=== PATIENT | male | born 1935 | race Asian ===

== ENCOUNTER 2016-10-09 12:39 | Inpatient (IN) | payer OTHER ==
--- NOTE | 2016-10-09 13:28 | PDOC ---
History of Present Illness - General History Source: Patient Exam Limitations: No Limitations <Cherry Arzola - Last Filed: 10/09/16 16:29> - History of Present Illness Initial Comments: 10/09/16 13:37 - General History Source: Patient Exam Limitations: No Limitations - History of Present Illness Initial Comments: 10/09/16 13:29 The patient is an 81-year-old man, accompanied by spouse, with a significant past medical history of anemia, liver transplant status post liver Ca (2005; on Cyclosporine) hypertension, insulin dependent diabetes mellitus, dementia who presents to the emergency department status post fall 2 days ago. History was provided by patient;s and old records, secondary to patient's clinical history of dementia. As per patient's , at approximately 12:00 AM, 2 days ago, the patient got up to use the commode. While getting up from the commode, the patient fell onto his right side. No head injury/loss of consciousness. Patients was unable to lift the patient up by herself, therefore he stayed on the floor until the next day, when home care came over. EMS was activated. Patient currently complaints of right hip and leg pain, as per . also states that the patient has been running low grade subjective fevers at home, TMAX 99.7. Allergies: No Known Drug Allergies Past Surgical History: Liver transplant. Left hip surgery. Social History: No tobacco, ETOH and recreational drug use. Primary Care Physician: Dr. Sandra Ramirez Review of systems unobtainable, due to history of dementia. <Cherry Arzola - Last Filed: 10/09/16 13:33> <Madison Viera - Last Filed: 10/10/16 22:28> - General Chief Complaint: Injury Stated Complaint: FALL Time Seen by Provider: 10/09/16 13:06 Past History <Cherry Arzola - Last Filed: 10/09/16 16:29> - Past Medical History Anemia: Yes Cancer: Yes (liver) Dementia: Yes Diabetes: Yes (IDDM) GI Disorders: Yes (GASTROESOPHAGEAL REFLUX) HTN: Yes - Surgical History Abdominal Surgery: Yes (LIVER TRANSPLANT: 1995) Orthopedic Surgery: Yes (LT HIP SURGERY) - Psycho/Social/Smoking Cessation Hx Anxiety: No Suicidal Ideation: No Smoking History: Never smoked Have you smoked in the past 12 months: No Hx Alcohol Use: No Drug/Substance Use Hx: No Substance Use Type: None Hx Substance Use Treatment: No <Madison Viera - Last Filed: 10/10/16 22:28> - Past Medical History Allergies/Adverse Reactions: Allergies Allergy/AdvReac Type Severity Reaction Status Date / Time No Known Allergies Allergy Verified 10/09/16 12:50 Home Medications: Ambulatory Orders Alendronate Na [Fosamax] 70 mg PO Q7D 10/09/16 Amlodipine Besylate [Norvasc -] 5 mg PO DAILY 10/09/16 Cyclosporine 25 mg PO DAILY 10/09/16 Dexlansoprazole [Dexilant] 60 mg PO DAILY 10/09/16 Fluticasone Prop 0.05% Nasal [Flonase -] 1 spray NS DAILY 10/09/16 Lamivudine 300 mg PO DAILY 10/09/16 Lipase/Protease/Amylase [Creon Dr 36,000 Units Capsule] 1 each PO DAILY Olopatadine HCl [Pataday] 2.5 ml OP DAILY 10/09/16 [place]-3/Dha/Epa/Fish Oil [[place] 3 500 Softgel] 1 each PO DAILY 10/09/16 Rivastigmine [Exelon] 1 each TD DAILY PRN 10/09/16 Ursodiol [Actigall] 300 mg PO DAILY 10/09/16 Carbidopa/Levodopa *Cr* 25/100 [Sinemet *Cr* 25/100 -] 1 combo PO TID 10/10/16 Review of Systems - Review of Systems Able to Perform ROS?: No Comments:: 10/09/16 13:33 Review of systems unobtainable, due to history of dementia. <Cherry Arzola - Last Filed: 10/09/16 16:29> *Physical Exam - Vital Signs Last Vital Signs Temp Pulse Resp BP Pulse Ox 98 F 65 18 120/74 96 10/09/16 12:41 10/09/16 12:41 10/09/16 12:41 10/09/16 12:41 10/09/16 12:41 <Cherry Arzola - Last Filed: 10/09/16 16:29> - Vital Signs Last Vital Signs Temp Pulse Resp BP Pulse Ox 98 F 65 18 120/74 96 10/09/16 12:41 10/09/16 12:41 10/09/16 12:41 10/09/16 12:41 10/09/16 12:41 - Physical Exam Comments: 10/09/16 13:37 Physical exam Last Vital Signs Temp Pulse Resp BP Pulse Ox 98 F 65 18 120/74 96 10/09/16 12:41 10/09/16 12:41 10/09/16 12:41 10/09/16 12:41 10/09/16 12:41 GENERAL: The patient is awake, alert, and answers Y or N occ. to simple questions HEAD: Normal with no signs of trauma. EYES: sclera anicteric, conjunctiva are normal. ENT: Moist mucous membranes. NECK: Normal range of motion, supple No C-spine tenderness LUNGS: Breath sounds equal, clear to auscultation bilaterally. No wheezes, and no crackles. HEART: Regular rate and rhythm, normal S1 and S2 without murmur, rub or gallop. ABDOMEN: Soft, nontender, normoactive bowel sounds. No guarding, no rebound. No masses appreciated. EXTREMITIES: There is some tenderness on the right pelvis There is tenderness on the right hip and upper femur There is full range of motion of the left hip There is full range of motion of the shoulders and elbows bilaterally The dorsalis pedis pulse is palpable in the right lower extremity NEUROLOGICAL: Patient is demented, occasionally answers yes or no to simple questions Moves extremities appears grossly nonfocal, does not move right lower extremity secondary to pain SKIN: Warm, Dry, <Madison Viera - Last Filed: 10/10/16 22:28> ED Treatment Course - LABORATORY CBC & Chemistry Diagram: 10/09/16 14:09 10/09/16 14:09 - RADIOLOGY Radiograph Interpretation: 10/09/16 15:22 EXAM: CT/CERVICAL SPINE CT W/O CONTR IMPRESSION: There is no CT evidence of intracranial injury or calvarial fracture. No discrete infarct is identified within the limitations of CT. Mild to moderate periventricular microvascular ischemic gliosis is noted. There is no extra-axial fluid collection. No obvious mass lesion is seen. Involutional changes are seen with corresponding mild ventricular dilatation. A small to moderate amount nonspecific fluid is noted within the right mastoid air cells. No gross temporal bone fracture is identified on this study. IMPRESSION: No CT evidence of acute intracranial pathology. A small to moderate amount of fluid is seen within the right mastoid air cells. EXAM: CT/HEAD CT WITHOUT CONTRAST IMPRESSION: Cervical spine CT without contrast Clinical information: status post fall, injury No fracture or dislocation is seen. Moderate degenerative disc and facet joint changes are noted. A small left paramedian C4-C5 disc herniation is seen. The perivertebral soft tissues demonstrate no discrete abnormality <Cherry Arzola - Last Filed: 10/09/16 16:29> - LABORATORY CBC & Chemistry Diagram: 10/10/16 06:15 10/10/16 06:15 - RADIOLOGY Radiology Studies Ordered: Category Date Time Status CERVICAL SPINE CT W/O CONTR [CT] Stat CT Scan 10/09/16 13:[address] WITHOUT CONTRAST [CT] Stat CT Scan 10/09/16 13:25 Ordered CHEST - PA [RAD] Stat Radiology 10/09/16 13:26 Ordered FEMUR-RIGHT [RAD] Stat Radiology 10/09/16 13:26 Ordered HIP & PELVIS-RIGHT [RAD] Stat Radiology 10/09/16 13:26 Ordered <Madison Viera - Last Filed: 10/10/16 22:28> Medical Decision Making - Medical Decision Making 10/09/16 16:14 MicroBlogged Hospitalist. 10/09/16 16:30 Paged Orthopedics car sales consultant- MYESHA Barbosa. <Cherry Arzola - Last Filed: 10/09/16 16:29> - Medical Decision Making 10/09/16 13:41 EKG Normal sinus rhythm 63, left axis deviation -21 Normal AV conduction time Right bundle branch block QTC [address]-T waves When compared to the EKG of 05/20/16 Today's EKG is unchanged from the prior EKG 10/09/16 15:09 Laboratory Results - last 24 hr 10/09/16 10/09/16 10/09/16 14:09 14:09 14:09 WBC 8.4 D RBC 3.35 L Hgb 11.4 L Hct 33.1 L MCV 98.8 H MCHC 34.3 RDW 13.1 D Plt Count 148 D MPV 7.6 Sodium 137 Potassium 4.4 Chloride 101 Carbon Dioxide 27 Anion Gap 9 BUN 20 H Creatinine 1.2 D Creat Clearance w eGFR 58.26 Random Glucose 111 H Calcium 8.5 Magnesium 2.1 Total Bilirubin 1.1 H AST 24 ALT 18 D Alkaline Phosphatase 289 H Creatine Kinase 82 Troponin I < 0.02 B-Natriuretic Peptide 577.44 H Total Protein 7.1 Albumin 2.6 L Urine Color Yellow Urine Appearance Clear Urine pH 7.0 D Ur Specific [place] 1.013 Urine Protein Negative Urine Glucose (UA) Negative Urine Ketones Negative Urine Blood Negative Urine Nitrite Negative Urine Bilirubin Negative Urine Urobilinogen 2.0 e.u/dl Ur Leukocyte Esterase Negative 10/09/16 15:43 CT scan of the head without NAD CT scan of the C-spine No fracture is identified 10/09/16 16:45 Hip and pelvis as read by me Intertrochanteric fracture of the right hip Chest x-ray as read by me Poor inspiration, increased markings, no definite infiltrate Awaiting radiology reading Case discussed with hospitalist, and case discussed with MYESHA Barbosa from orthopedics Will admit, nothing by mouth after midnight <Madison Viera - Last Filed: 10/10/16 22:28> *DC/Admit/Observation/Transfer - Attestations Scribe Attestion: 10/09/16 13:30 Documentation prepared by Cherry Arzola, acting as medical planner for Madison Viera MD. <Cherry Arzola - Last Filed: 10/09/16 16:29> - Discharge Dispostion Admit: Yes <Madison Viera - Last Filed: 10/10/16 22:28> Diagnosis at time of Disposition: Hip fracture, Fall with injury - Referrals
[2016-10-09] MEDS: SODIUM CHLORIDE 1,000 ML IV SCH (14:08)
[2016-10-09 14:13] LABS: MCH 33.9 pg (25.7-33.7); MCHC 34.3 g/dl (32.0-35.9); MEAN CELL VOLUME 98.8 fl (80-96); MEAN PLT VOLUME 7.6 fl (7.5-11.1); PLATELET COUNT 148 K/MM3 (134-434); RDW 13.1 % (11.9-15.9); WHITE BLOOD COUNT 8.4 K/mm3 (4.0-10.0)
[2016-10-09 14:19] LABS: URINE APPEARANCE CLEAR; URINE BILIRUBIN NEGATIVE (NEGATIVE); URINE BLOOD NEGATIVE (NEGATIVE); URINE COLOR YELLOW; URINE GLUCOSE (UA) NEGATIVE (NEGATIVE); URINE KETONE NEGATIVE (NEGATIVE); URINE LEUK ESTERASE NEGATIVE (NEGATIVE); URINE NITRITE NEGATIVE (NEGATIVE); URINE PROTEIN NEGATIVE (NEGATIVE); URINE UROBILINOGEN 2.0 E.U/dl E.U./dl (0.2-1.0)
[2016-10-09 14:36] LABS: ALBUMIN 2.6 g/dl (3.4-5.0); ANION GAP 9 (8-16); BILIRUBIN,TOTAL 1.1 mg/dL (0.2-1.0); CALCIUM 8.5 mg/dL (8.5-10.1); CO2 27 mmol/L (21-32); COCKROFT - GAULT 53.54; CREATININE 1.2 mg/dL (0.7-1.3); GLUCOSE,RANDOM 111 mg/dL (74-106); MAGNESIUM 2.1 mg/dL (1.8-2.4); SGOT/AST 24 U/L (15-37); SGPT/ALT 18 U/L (12-78); TOT PROT 7.1 g/dl (6.4-8.2)
[2016-10-09 14:39] LABS: ALK PHOS 289 U/L (45-117); TROPONIN I < 0.02 ng/ml (0.00-0.05)
--- NOTE | 2016-10-09 20:09 | HP ---
CHIEF COMPLAINT: R- Hip Pain PCP: Dr. Ashley Garcias HISTORY OF PRESENT ILLNESS: This is a 81 y/o male with significant past medical history of Hypertension, IDDM, Liver Transplant s/p Liver Ca (on Cyclosporine), Anemia, Dementia. Who presents to the emergency department from home s/p fall x2 days, with right hip pain, non-ambulatory. Patient has Dementia, unable to obtain HPI. Per ED records: As per patient's , at approximately 12:00 AM, 2 days ago, the patient got up to use the commode. While getting up from the commode, the patient fell onto his left side. No head injury/loss of consciousness. Patients was unable to lift the patient up by herself, therefore he stayed on the floor until the next day, when home care came over. EMS was activated. Patient currently complaints of right hip and leg pain, as per . also states that the patient has been running low grade subjective fevers at home, TMAX 99.7 ER course was notable for: (1) Xray Right Hip- Intertrochanteric fx (2) CT Head- no intracranial injury or calvorial fx (3) Ct Spine- No fx, no dislocation. Moderate degenerative disc/facet joint C4- C5 disc herniation Recent Travel: None PAST MEDICAL HISTORY: Hypertension IDDM Liver Ca Anemia Dementia PAST SURGICAL HISTORY: Liver Transplant 2005 Social History: Smoking: Never Alcohol: None Drugs: None Family History: Non-contributory Allergies No Known Allergies Allergy (Verified 10/09/16 12:50) HOME MEDICATIONS: Home Medications Medication Instructions Recorded Alendronate Na [Fosamax] 70 mg PO Q7D 10/09/16 Amlodipine Besylate [Norvasc -] 5 mg PO DAILY 10/09/16 Cyclosporine 25 mg PO DAILY 10/09/16 Dexlansoprazole [Dexilant] 60 mg PO DAILY 10/09/16 Fluticasone Prop 0.05% Nasal 1 spray NS DAILY 10/09/16 [Flonase -] Lamivudine 300 mg PO DAILY 10/09/16 Lipase/Protease/Amylase [[place]anna[place] Dr 1 each PO DAILY 10/09/16 36,000 Units Capsule] Olopatadine HCl [Pataday] 2.5 ml OP DAILY 10/09/16 [place]-3/Dha/Epa/Fish Oil [[place] 3 1 each PO DAILY 04/30/17 500 Softgel] Rivastigmine [Exelon] 1 each TD DAILY PRN 10/09/16 Ursodiol [Actigall] 300 mg PO DAILY 10/09/16 REVIEW OF SYSTEMS Unable to obtain secondary to Dementia CONSTITUTIONAL: Absent: fever, chills, diaphoresis, generalized weakness, malaise, loss of appetite, weight change HEENT: Absent: rhinorrhea, nasal congestion, throat pain, throat swelling, difficulty swallowing, mouth swelling, ear pain, eye pain, visual changes CARDIOVASCULAR: Absent: chest pain, syncope, palpitations, irregular heart rate, lightheadedness , peripheral edema RESPIRATORY: Absent: cough, shortness of breath, dyspnea with exertion, orthopnea, wheezing, stridor, hemoptysis GASTROINTESTINAL: Absent: abdominal pain, abdominal distension, nausea, vomiting, diarrhea, constipation, melena, hematochezia GENITOURINARY: Absent: dysuria, frequency, urgency, hesitancy, hematuria, flank pain, genital pain MUSCULOSKELETAL: Absent: myalgia, arthralgia, joint swelling, back pain, neck pain SKIN: Absent: rash, itching, pallor HEMATOLOGIC/IMMUNOLOGIC: Absent: easy bleeding, easy bruising, lymphadenopathy, frequent infections ENDOCRINE: Absent: unexplained weight gain, unexplained weight loss, heat intolerance, cold intolerance NEUROLOGIC: Absent: headache, focal weakness or paresthesias, dizziness, unsteady gait, seizure, mental status changes, bladder or bowel incontinence PSYCHIATRIC: Absent: anxiety, depression, suicidal or homicidal ideation, hallucinations. PHYSICAL EXAMINATION Vital Signs - 24 hr 10/09/16 10/09/16 12:41 18:16 Temperature 98 F 98.1 F Pulse Rate 65 Pulse Rate [ 63 Apical] Respiratory 18 18 Rate Blood Pressure 120/74 Blood Pressure 139/70 [Left Arm] O2 Sat by Pulse 96 98 Oximetry (%) GENERAL: Awake, alert to baseline, responds to his name only, in no acute distress. HEAD: Normal with no signs of trauma. EYES: Pupils equal, round and reactive to light, extraocular movements intact, sclera anicteric, conjunctiva clear. No lid lag. EARS, NOSE, THROAT: Ears normal, nares patent, oropharynx clear without exudates. Moist mucous membranes. NECK: Normal range of motion, supple without lymphadenopathy, JVD, or masses. LUNGS: Breath sounds equal, clear to auscultation bilaterally. No wheezes, and no crackles. No accessory muscle use. HEART: Regular rate and rhythm, normal S1 and S2 without murmur, rub or gallop. ABDOMEN: Soft, nontender, not distended, normoactive bowel sounds, no guarding, no rebound, no masses. No hepatomegaly or splenomegaly. MUSCULOSKELETAL: Tenderness to R- hip, with right leg shortening and external rotation. Normal range of motion to RUE, LUE, LLE joints. No bony deformities. No CVA tenderness. UPPER EXTREMITIES: 2+ pulses, warm, well-perfused. No cyanosis. No clubbing. No peripheral edema. LOWER EXTREMITIES: 2+ pulses, warm, well-perfused. No calf tenderness. No peripheral edema. NEUROLOGICAL: Cranial nerves II-XII intact. Normal speech. Unable to assess gait due to R- Hip fx. PSYCHIATRIC: Cooperative. Good eye contact. Appropriate mood and affect. SKIN: Multiple brown non raised lesions to RLE noted. Warm, dry, normal turgor, no rashes, normal capillary refill. Laboratory Results - last 24 hr 3 10/09/16 10/09/16 10/09/16 14:09 14:09 14:09 WBC 8.4 D RBC 3.35 L Hgb 11.4 L Hct 33.1 L MCV 98.8 H MCHC 34.3 RDW 13.1 D Plt Count 148 D MPV 7.6 Sodium 137 Potassium 4.4 Chloride 101 Carbon Dioxide 27 Anion Gap 9 BUN 20 H Creatinine 1.2 D Creat Clearance w eGFR 58.26 Random Glucose 111 H Calcium 8.5 Magnesium 2.1 Total Bilirubin 1.1 H AST 24 ALT 18 D Alkaline Phosphatase 289 H Creatine Kinase 82 Troponin I < 0.02 B-Natriuretic Peptide 577.44 H Total Protein 7.1 Albumin 2.6 L Urine Color Yellow Urine Appearance Clear Urine pH 7.0 D Ur Specific [place] 1.013 Urine Protein Negative Urine Glucose (UA) Negative Urine Ketones Negative Urine Blood Negative Urine Nitrite Negative Urine Bilirubin Negative Urine Urobilinogen 2.0 e.u/dl Ur Leukocyte Esterase Negative RADIOLOGY Radiograph Interpretation: 10/09/16 15:22 EXAM: CT/CERVICAL SPINE CT W/O CONTR IMPRESSION: There is no CT evidence of intracranial injury or calvarial fracture. No discrete infarct is identified within the limitations of CT. Mild to moderate periventricular microvascular ischemic gliosis is noted. There is no extra-axial fluid collection. No obvious mass lesion is seen. Involutional changes are seen with corresponding mild ventricular dilatation. A small to moderate amount nonspecific fluid is noted within the right mastoid air cells. No gross temporal bone fracture is identified on this study. IMPRESSION: No CT evidence of acute intracranial pathology. A small to moderate amount of fluid is seen within the right mastoid air cells. EXAM: CT/HEAD CT WITHOUT CONTRAST IMPRESSION: Cervical spine CT without contrast Clinical information: status post fall, injury No fracture or dislocation is seen. Moderate degenerative disc and facet joint changes are noted. A small left paramedian C4-C5 disc herniation is seen. The perivertebral soft tissues demonstrate no discrete abnormality ASSESSMENT/PLAN: This is a 81 y/o male with a PMHx of: HTN, IDDM, LIver Transplant s/p Liver Ca ( on Cyclosporine), Anemia, Dementia. Presents to the ED s/p fall R- hip pain, non -ambulatory. Admitted to [facility] for Right Intertrochanteric Hip Fx for further evaluation of their emergent condition. Plan 1. Ortho: Right Intertrochanteric Fx - s/p fall - Xray- image reviewed, report pending - Ortho Consulted by ED - Bedrest - NPO @ midnight prior to surgery tenative 5/ - Continue gentle IVF - Morphine prn - PT - Consider Rehab vs SNF - Pulse checks - Monitor CBC 2. Anemia - Hgb at baseline - Will transfise if Hgb < 7.0 3. HTN - Monitor BP - Continue home med 4. IDDM - BGMs - ISS - Monitor renal function 5. Liver Transplant - Continue Cyclosporine, may use own med when verified by pharmacy 6. Dementia - Continue Exelon Patch, may use own med when verified by pharmacy 7. FEN - NS@60cc/hr - Replete lytes as indicated - NPO 8. DVT Prophylaxis - SCDs - Lovenox SQ Code Status: Full Code Dispo: Continue Inpatient Care Problem List - Problem (1) Hip fracture Code(s): S72.009A - FRACTURE OF UNSP PART OF NECK OF UNSP FEMUR, INIT (2) Hip pain, acute Code(s): M25.559 - PAIN IN UNSPECIFIED HIP (3) Fall with injury Code(s): W19.XXXA - UNSPECIFIED FALL, INITIAL ENCOUNTER (4) Anemia Code(s): D64.9 - ANEMIA, UNSPECIFIED (5) Liver transplant recipient Code(s): Z94.4 - LIVER TRANSPLANT STATUS (6) Diabetes Code(s): E11.9 - TYPE 2 DIABETES MELLITUS WITHOUT COMPLICATIONS (7) HTN (hypertension) Code(s): I10 - ESSENTIAL (PRIMARY) HYPERTENSION (8) Dementia Code(s): F03.90 - UNSPECIFIED DEMENTIA WITHOUT BEHAVIORAL DISTURBANCE (9) DVT prophylaxis Code(s): HLT7642 - Visit type - Emergency Visit Emergency Visit: Yes ED Registration Date: 10/09/16 Care time: The patient presented to the Emergency Department on the above date and was hospitalized for further evaluation of their emergent condition. - New Patient This patient is new to me today: Yes Date on this admission: 10/09/16 - Critical Care Critical Care patient: No
[2016-10-09] MEDS ORDERED: morphine CARPU-JECT 4 MG/1 ML DISP.SYRIN IVPUSH PRN (21:26)
--- NOTE | 2016-10-09 22:16 | CONSULT ---
Consult - text type - Consultation Consultation Note: Asked to eval this 81M with PMH of anemia, liver transplant status post liver Ca , hypertension, insulin dependent diabetes mellitus, dementia who presented to the emergency department status post fall 2 days ago. Pt has history of dementia but is a good historian, states fell getting up to use the commode - history obtained in Hebrew. No head injury/loss of consciousness. PMH: as above Allergies: No Known Drug Allergies Past Surgical History: Liver transplant. Left hip surgery. Social History: No tobacco, ETOH and recreational drug use. Primary Care Physician: Dr. Sandra Ramirez ROS: no fevers/chills/ weight loss PE: pt awake, cooperative, RLE externally rotated b/L UE exam grossly intact, palpation and passive rom without pain RLE neuro intact, pain with ROM, distal pulses 2+ LLE passive ROM pain free in all joints Distal pulses 2+ Xrays: Right hip IT fx Imp: Right intertrochanteric proximal femur fracture -indicated for IMN -awaiting medical clearance -will book for am 5/2 pending medical clearance -venodynes b/l LE for DVT prophylaxis -recommend anticoagulation if with LMWH if no contraindication to discontinue 12 hours prior to surgery
[2016-10-09] MEDS: morphine CARPU-JECT 2 MG/1 ML DISP.SYRIN IVPUSH PRN (23:17)
--- NOTE | 2016-10-10 00:06 | EKG ---
Test Reason : Blood Pressure : / mmHG Vent. Rate : 063 BPM Atrial Rate : 063 BPM P-R Int : 170 ms QRS Dur : 136 ms QT Int : 458 ms P-R-T Axes : 036 -21 -04 degrees QTc Int : 468 ms NORMAL SINUS RHYTHM RIGHT BUNDLE BRANCH BLOCK MINIMAL VOLTAGE CRITERIA FOR LVH, MAY BE NORMAL VARIANT ABNORMAL ECG WHEN COMPARED WITH ECG OF 20-MAY-2016 10:47, NO SIGNIFICANT CHANGE WAS FOUND Confirmed by GALILEA BERNSTEIN, KRISTINE ([id number]) on 10/10/2016 12:06:16 AM Referred By: Confirmed By:KRISTINE CALERO MD
[2016-10-10 01:19] VITALS: BMI 25.9
[2016-10-10] MEDS: INSULIN SLIDING SCALE (NOVOLOG) 1 VIAL SQ SCH ×4 (06:03→22:08)
[2016-10-10 07:28] LABS: BASOPHIL 0.3 % (0-2.0); MCHC 34.5 g/dl (32.0-35.9); MEAN CELL VOLUME 98.7 fl (80-96); MEAN PLT VOLUME 8.4 fl (7.5-11.1); PLATELET COUNT 137 K/MM3 (134-434); RDW 13.3 % (11.9-15.9); WHITE BLOOD COUNT 9.9 K/mm3 (4.0-10.0)
[2016-10-10 07:58] LABS: INR 1.35 (0.82-1.09); PROTHROMBIN TIME (PATIENT) 14.9 SEC (9.98-11.88)
[2016-10-10 08:15] LABS: CALCIUM 8.8 mg/dL (8.5-10.1); COCKROFT - GAULT 53.86; CREATININE 1.2 mg/dL (0.7-1.3)
[2016-10-10] MEDS ORDERED: PT OWN MED DRAWER 7, Y5N ONE (08:59)
[2016-10-10] MEDS ORDERED: ACETAMINOPHEN 325 MG TABLET (FP) PO ONE (09:00)
[2016-10-10] MEDS: PANTOPRAZOLE 40 MG TABLET (FP) PO SCH (09:10)
[2016-10-10] MEDS: amLODIPine BESYLATE 5 MG TABLET (FP) PO SCH (09:10)
[2016-10-10] MEDS: URSODIOL 300 MG CAPSULE PO SCH (09:11)
[2016-10-10] MEDS: LIPASE/PROTEASE/AMYLASE 36,000 UNIT CAPSULE PO SCH (09:11)
[2016-10-10] MEDS ORDERED: ENOXAPARIN NA (PORCINE) 40 MG/0.4 ML DISP.SYRIN SQ SCH (10:00)
[2016-10-10] MEDS ORDERED: cycloSPORINE 25 MG CAPSULE PO SCH (10:00)
[2016-10-10] MEDS: FLUTICASONE PROP 0.05% 16 GM NASAL SPRAY NS SCH (11:35)
--- NOTE | 2016-10-10 14:54 | CON.CARD ---
Consult Consult Specialty:: Cardiology Referred by:: Hospitalist Medicine Reason for Consultation:: Pre-op cardiovascular evaluation - History of Present Illness Chief Complaint: Post fall right hip pain History of Present Illness: This is a 81 y/o male with significant past medical history of Hypertension, IDDM, Liver ca s/p orthotic Liver Transplant (on Cyclosporine), Anemia, Dementia. presented to the emergency department from home s/p fall x2 days, with right hip pain, non-ambulatory. Patient has dementia, reports falling onto left side while using commode. No head injury/loss of consciousness. Patients was unable to lift the patient up by herself, therefore he stayed on the floor until the next day, when home care came over. EMS was activated. Patient currently complaints of right hip and leg pain, as per . also states that the patient has been running low grade subjective fevers at home, TMAX 99.7 ER course was notable for: (1) Xray Right Hip- Intertrochanteric fx (2) CT Head- no intracranial injury or calvorial fx (3) Ct Spine- No fx, no dislocation. Moderate degenerative disc/facet joint C4- C5 disc herniation Recent Travel: None PAST MEDICAL HISTORY: Hypertension IDDM Liver Ca Anemia Dementia PAST SURGICAL HISTORY: Liver Transplant 2005 Social History: Smoking: Never Alcohol: None Drugs: None - History Source History Provided By: Medical Record Limitations to Obtaining History: Dementia - Past Medical History DIETARY INTERNSHIP: Yes: Dementia Gastrointestinal: Yes: Cancer Hepatobiliary: Yes: Other (liver transplant) Infectious Disease: Yes: Other (FUO) Musculoskeletal: Yes: Other (HIP PAIN) - Past Surgical History Past Surgical History: Yes: Liver Transplant - Alcohol/Substance Use Hx Alcohol Use: No - Smoking History Smoking history: Never smoked Have you smoked in the past 12 months: No Home Medications - Allergies Allergies/Adverse Reactions: Allergies Allergy/AdvReac Type Severity Reaction Status Date / Time No Known Allergies Allergy Verified 10/09/16 12:50 - Home Medications Home Medications: Ambulatory Orders Alendronate Na [Fosamax] 70 mg PO Q7D 10/09/16 Amlodipine Besylate [Norvasc -] 5 mg PO DAILY 10/09/16 Cyclosporine 25 mg PO DAILY 10/09/16 Dexlansoprazole [Dexilant] 60 mg PO DAILY 10/09/16 Fluticasone Prop 0.05% Nasal [Flonase -] 1 spray NS DAILY 10/09/16 Lamivudine 300 mg PO DAILY 10/09/16 Lipase/Protease/Amylase [Hood Munoz 36,000 Units Capsule] 1 each PO DAILY Olopatadine HCl [Pataday] 2.5 ml OP DAILY 10/09/16 [place]-3/Dha/Epa/Fish Oil [[place] 3 500 Softgel] 1 each PO DAILY 10/09/16 Rivastigmine [Exelon] 1 each TD DAILY PRN 10/09/16 Ursodiol [Actigall] 300 mg PO DAILY 10/09/16 Vital Signs: Vital Signs Temperature 99.3 F 10/10/16 14:37 Pulse Rate 64 10/10/16 14:37 Respiratory Rate 18 10/10/16 14:37 Blood Pressure 107/57 10/10/16 14:37 O2 Sat by Pulse Oximetry (%) 94 L 10/10/16 00:46 - Other Data Labs, Other Data: CBC, BMP 10/10/16 06:15 10/10/16 06:15 INR, PTT INR 1.35 (0.82-1.09) H 10/10/16 06:15 Assessment/Plan Asked to eval this 81M with PMH of anemia, liver transplant status post liver Ca , hypertension, insulin dependent diabetes mellitus, dementia who presented to the emergency department status post fall 2 days ago. Pt has history of dementia but is a good historian, states fell getting up to use the commode - history obtained in Kyrgyz. No head injury/loss of consciousness. PMH: as above Allergies: No Known Drug Allergies Past Surgical History: Liver transplant. Left hip surgery. Social History: No tobacco, ETOH and recreational drug use. Primary Care Physician: Dr. Sandra Ramirez ROS: no fevers/chills/ weight loss PE: pt awake, cooperative, RLE externally rotated b/L UE exam grossly intact, palpation and passive rom without pain RLE neuro intact, pain with ROM, distal pulses 2+ LLE passive ROM pain free in all joints Distal pulses 2+ Xrays: Right hip IT fx Imp: Right intertrochanteric proximal femur fracture -indicated for IMN -awaiting medical clearance -will book for am 5/2 pending medical clearance -venodynes b/l LE for DVT prophylaxis -recommend anticoagulation if with LMWH if no contraindication to discontinue 12 hours prior to surgery Alendronate Na [Fosamax] 70 mg PO Q7D 10/09/16 Amlodipine Besylate [Norvasc -] 5 mg PO DAILY 10/09/16 Cyclosporine 25 mg PO DAILY 10/09/16 Dexlansoprazole [Dexilant] 60 mg PO DAILY 10/09/16 Fluticasone Prop 0.05% Nasal [Flonase -] 1 spray NS DAILY 10/09/16 Lamivudine 300 mg PO DAILY 10/09/16 Lipase/Protease/Amylase [Hood Dr 36,000 Units Capsule] 1 each PO DAILY Olopatadine HCl [Pataday] 2.5 ml OP DAILY 10/09/16 [place]-3/Dha/Epa/Fish Oil [[place] 3 500 Softgel] 1 each PO DAILY 10/09/16 Rivastigmine [Exelon] 1 each TD DAILY PRN 10/09/16 Ursodiol [Actigall] 300 mg PO DAILY 10/09/16
[2016-10-10] MEDS: SODIUM CHLORIDE 1,000 ML IV SCH (15:02)
[2016-10-10] MEDS ORDERED: SODIUM CHLORIDE 1,000 ML IV SCH (19:26)
--- NOTE | 2016-10-10 19:30 | PN ---
Physical Exam: SUBJECTIVE: Patient seen and examined. He has tenderness to his R hip, he can't move much. He denies sob, chest pain, chills. OBJECTIVE: Vital Signs Period Temp Pulse Resp BP Sys/Puentes Pulse Ox Last 24 Hr 98.1 F-100.8 F 56-73 18-18 107-140/54-80 93-96 PE Neuro: alert, awake, cn 2-12intact, oriented to person, place, responds to basic questions Pulm: CTA CV: S1 s2 rrr no mrg Abd: RUQ transferse scar healed, abd soft, non distended +bc Ext: R hip tenderness, warm, no pedal edema msk: r knee swelling, +tenderness Laboratory Results - last 24 hr 10/10/16 10/10/16 10/10/16 05:57 06:15 06:15 WBC 9.9 RBC 3.11 L Hgb 10.6 L Hct 30.7 L MCV 98.7 H MCHC 34.5 RDW 13.3 Plt Count 137 MPV 8.4 D Neutrophils % 84.0 H D Lymphocytes % 10.0 D Monocytes % 4.7 Eosinophils % 1.0 Basophils % 0.3 INR Sodium 139 Potassium 4.4 Chloride 103 Carbon Dioxide 25 Anion Gap 11 BUN 22 H Creatinine 1.2 POC Glucometer 138 Random Glucose 120 H Calcium 8.8 10/09/16 10/10/16 14:09 06:15 INR 1.35 H Magnesium 2.1 Creatine Kinase 82 Troponin I < 0.02 B-Natriuretic Peptide 577.44 H Active Medications Generic Name Dose Route Start Last Admin Trade Name Lilia PRN Reason Stop Dose Admin Amlodipine Besylate 5 mg 10/10/16 10:00 10/10/16 09:10 Norvasc - PO 5 mg DAILY CATIE Administration Carbidopa/Levodopa 1 combo 10/10/16 22:00 Sinemet *Cr* 25/100 - PO TID CATIE Enoxaparin Sodium 40 mg 10/11/16 10:00 Lovenox - SQ DAILY CATIE Fluticasone Propionate 1 spray 10/10/16 10:00 10/10/16 11:35 Flonase - NS 1 spray DAILY CATIE Administration Sodium Chloride 1,000 mls @ 125 mls/hr 10/09/16 13:30 10/10/16 15:02 Normal Saline - IV 125 mls/hr ASDIR CATIE Administration Insulin Aspart 1 vial 10/10/16 07:00 10/10/16 17:18 Novolog Vial Sliding Scale - SQ Not Given ACHS [facility] Protocol Lamivudine 300 mg 10/10/16 10:00 10/10/16 09:11 Epivir - PO 300 mg DAILY CATIE Administration Morphine Sulfate 2 mg 10/09/16 21:35 10/09/16 23:17 Morphine Injection - IVPUSH 2 mg Q6H PRN Administration PAIN Non-Formulary Medication 25 mg 10/10/16 10:00 Cyclosporine [Cyclosporine] PO DAILY CATIE Non-Formulary Medication 1 each 10/10/16 10:00 Rivastigmine [Exelon] TD DAILY CATIE Non-Formulary Medication 2.5 ml 10/10/16 10:00 Olopatadine Hcl [Pataday] OP DAILY CATIE Non-Formulary Medication 1 each 10/10/16 10:00 [place]-3/Dha/Epa/Fish Oil [[place] 3 500 Softgel] PO DAILY CATIE Pancrelipase 1 cap 10/10/16 10:00 10/10/16 09:[address] 36,000 Units Capsule PO 1 cap DAILY CATIE Administration Pantoprazole Sodium 40 mg 10/10/16 10:00 10/10/16 09:10 Protonix - PO 40 mg DAILY CATIE Administration Ursodiol 300 mg 10/10/16 10:00 10/10/16 09:11 Actigal - PO 300 mg DAILY CATIE Administration Microbiology 10/09/16 14:09 Blood Culture - Preliminary Blood - Peripheral Venous NO GROWTH OBTAINED AFTER 24 HOURS, INCUBATION TO CONTINUE FOR 4 DAYS. 10/09/16 14:09 Blood Culture - Preliminary Blood - Peripheral Venous NO GROWTH OBTAINED AFTER 24 HOURS, INCUBATION TO CONTINUE FOR 4 DAYS. 10/09/16 14:04 Urine Culture - Final Urine - Urine Clean Catch NO GROWTH OBTAINED Assessment: 81 year old male with a PMHx of: HTN, IDDM, LIver Transplant s/p Liver Ca (on Cyclosporine), Anemia, Dementia admitted s/p fall with Right Intertrochanteric Hip Fx. Plan 1. Right Intertrochanteric Fx - For surgery tomorrow - Cardiac clearance ordered - ECHO nml lv size, fxn, mild mr, tr, borderline aortic root dilation - Continue lovenox per anesthesia - Decrease IVF 83cc/hr - NPO after midnight - Check CXR once post op 2. HTN - Controlled - Norvasc 5 daily 3. Anemia - Mild drop; will trend - Transfuse if Hgb < 7.0 4. DM II - Sugars controlled - ISS, BGM ACHS - Check hgb a1c 5. Liver Transplant - Continue Cyclosporine (family needs to bring in) 6. ? HIV exposure vs ppx - Epivir 7. Dementia - Continue Exelon Patch 8. Parkinson - Continue Carbidopa/Levodopa 9. Gallstone prevention - Continue actigall, pancrelipase Visit type - Emergency Visit Emergency Visit: Yes ED Registration Date: 10/09/16 Care time: The patient presented to the Emergency Department on the above date and was hospitalized for further evaluation of their emergent condition. - New Patient This patient is new to me today: Yes Date on this admission: 10/10/16 - Critical Care Critical Care patient: No
[2016-10-10] MEDS: CYCLOSPORINE 25 MG PO SCH (22:13)
[2016-10-10] MEDS: RIVASTIGMINE TD SCH (22:14)
[2016-10-11] MEDS: morphine CARPU-JECT 2 MG/1 ML DISP.SYRIN IVPUSH PRN ×4 (03:12→23:51)
[2016-10-11] MEDS: INSULIN SLIDING SCALE (NOVOLOG) 1 VIAL SQ SCH ×4 (06:13→21:55)
[2016-10-11 08:21] LABS: BASOPHIL 0.4 % (0-2.0); MCH 33.6 pg (25.7-33.7); MCHC 33.8 g/dl (32.0-35.9); MEAN CELL VOLUME 99.5 fl (80-96); NEUTROPHILS 73.4 % (42.8-82.8); PLATELET COUNT 125 K/MM3 (134-434); RDW 13.4 % (11.9-15.9); WHITE BLOOD COUNT 7.5 K/mm3 (4.0-10.0)
[2016-10-11 08:42] LABS: INR 1.33 (0.82-1.09); PROTHROMBIN TIME (PATIENT) 14.7 SEC (9.98-11.88)
[2016-10-11 08:50] LABS: ALBUMIN 2.1 g/dl (3.4-5.0); ALK PHOS 284 U/L (45-117); ANION GAP 10 (8-16); BILIRUBIN,TOTAL 0.9 mg/dL (0.2-1.0); CALCIUM 8.2 mg/dL (8.5-10.1); CO2 23 mmol/L (21-32); COCKROFT - GAULT 64.63; GLUCOSE,RANDOM 104 mg/dL (74-106); SGOT/AST 28 U/L (15-37); SGPT/ALT 7 U/L (12-78); TOT PROT 6.1 g/dl (6.4-8.2)
[2016-10-11] MEDS ORDERED: ENOXAPARIN NA (PORCINE) 40 MG/0.4 ML DISP.SYRIN SQ SCH (10:00)
--- NOTE | 2016-10-11 10:11 | CON.CARD ---
Consult Consult Specialty:: Cardiology Referred by:: Hospitalist Reason for Consultation:: Cardiac clearance - History of Present Illness Chief Complaint: Hip fracture History of Present Illness: Patient is seen and examined and history obtained from his . Patient was seen on 10/10/16 for 45 minutes for consultation Patient speaks Polish but his communication is limited Patient is an 81 year old Polish male with underlying history of hypertension, Insulin dependent diabetes, liver CA s/p orthotic liver transplant, anemia and dementia who presented to [facility] after a mechanical fall several days ago and complained of right hip pain. Patient is non-ambulatory and was using of commode when he fell. Fall did not result in head injury of loss of consciousness. He has had surgery of his left hip at [facility] in [place] in 2014. He did not complain of chest pain, shortness of breath or palpitations. His states that he has been running low grade temperature. Denies any syncopal episode in the past. Liver transplant was performed at [facility]. Cardiology consultation was called for cardiac clearance prior to hip surgery. 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 Cardio/Vascular: Yes: HTN Gastrointestinal: Yes: Cancer (Liver CA) Hepatobiliary: Yes: Other (liver transplant) Heme/Onc: Yes: Anemia - Past Surgical History Past Surgical History: Yes: Joint Replacement (Left hip replacement), Liver Transplant - Alcohol/Substance Use Hx Alcohol Use: No - Smoking History Smoking history: Never smoked Have you smoked in the past 12 months: No Home Medications - Allergies Allergies/Adverse Reactions: Allergies Allergy/AdvReac Type Severity Reaction Status Date / Time No Known Allergies Allergy Verified 10/09/16 12:50 - Home Medications Home Medications: Ambulatory Orders Alendronate Na [Fosamax] 70 mg PO Q7D 10/09/16 Amlodipine Besylate [Norvasc -] 5 mg PO DAILY 10/09/16 Cyclosporine 25 mg PO DAILY 10/09/16 Dexlansoprazole [Dexilant] 60 mg PO DAILY 10/09/16 Fluticasone Prop 0.05% Nasal [Flonase -] 1 spray NS DAILY 10/09/16 Lamivudine 300 mg PO DAILY 10/09/16 Lipase/Protease/Amylase [Hood Munoz 36,000 Units Capsule] 1 each PO DAILY Olopatadine HCl [Pataday] 2.5 ml OP DAILY 10/09/16 [place]-3/Dha/Epa/Fish Oil [[place] 3 500 Softgel] 1 each PO DAILY 10/09/16 Rivastigmine [Exelon] 1 each TD DAILY PRN 10/09/16 Ursodiol [Actigall] 300 mg PO DAILY 10/09/16 Carbidopa/Levodopa *Cr* 25/100 [Sinemet *Cr* 25/100 -] 1 combo PO TID 10/10/16 Family Disease History - Family Disease History Other Family History: History of liver CA Review of Systems - Review of Systems Constitutional: denies: Chills, Fever Eyes: reports: No Symptoms HENT: reports: No Symptoms Neck: reports: No Symptoms Cardiovascular: denies: Chest Pain, Palpitations, Shortness of Breath Respiratory: denies: Cough, Hemoptysis, Orthopnea, PND, SOB, SOB on Exertion Gastrointestinal: denies: Abdominal Pain, Constipation, Melena, Nausea, Rectal Bleeding, Vomiting Genitourinary: denies: Dysuria Musculoskeletal: reports: Joint Pain Neurological: reports: Unsteady Gait, Weakness. denies: Dizziness, Headache, Numbness, Seizure, Syncope, Tremors Hematology/Lymphatic: denies: Excessive Bleeding Vital Signs: Vital Signs Temperature 98.7 F 10/11/16 06:00 Pulse Rate 71 10/11/16 06:00 Respiratory Rate 20 10/11/16 06:00 Blood Pressure 131/53 10/11/16 06:00 O2 Sat by Pulse Oximetry (%) 93 L 10/10/16 21:00 Neck: Yes: Supple Respiratory: Yes: CTA Bilaterally Gastrointestinal: Yes: Normal Bowel Sounds, Soft. No: Tenderness Cardiovascular: Yes: Regular Rate and Rhythm JVD: No Carotid Bruit: No PMI: Non-Displaced Heart Sounds: Yes: S1, S2. No: Gallop Murmur: No: Systolic Murmur, Diastolic Murmur Musculoskeletal: Yes: Other (right hip fracture) Edema: No - Other Data Labs, Other Data: CBC, BMP 10/11/16 07:45 10/11/16 07:45 INR, PTT INR 1.33 (0.82-1.09) H 10/11/16 07:45 Laboratory Results - last 24 hr 10/10/16 10/10/16 10/10/16 11:09 17:07 21:52 WBC RBC Hgb Hct MCV MCHC RDW Plt Count MPV Neutrophils % Lymphocytes % Monocytes % Eosinophils % Basophils % INR Sodium Potassium Chloride Carbon Dioxide Anion Gap BUN Creatinine Creat Clearance w eGFR POC Glucometer 169 144 140 Random Glucose Calcium Total Bilirubin AST ALT Alkaline Phosphatase Total Protein Albumin 10/11/16 10/11/16 10/11/16 06:12 07:45 07:45 WBC 7.5 RBC 2.99 L Hgb 10.0 L Hct 29.7 L MCV 99.5 H MCHC 33.8 RDW 13.4 Plt Count 125 L MPV 8.0 Neutrophils % 73.4 Lymphocytes % 17.4 D Monocytes % 6.8 Eosinophils % 2.0 D Basophils % 0.4 INR Sodium 139 Potassium 3.9 Chloride 106 Carbon Dioxide 23 Anion Gap 10 BUN 19 H Creatinine 1.0 Creat Clearance w eGFR > 60 POC Glucometer 121 Random Glucose 104 Calcium 8.2 L Total Bilirubin 0.9 AST 28 ALT 7 L D Alkaline Phosphatase 284 H Total Protein 6.1 L Albumin 2.1 L 10/11/16 07:45 WBC RBC Hgb Hct MCV MCHC RDW Plt Count MPV Neutrophils % Lymphocytes % Monocytes % Eosinophils % Basophils % INR 1.33 H Sodium Potassium Chloride Carbon Dioxide Anion Gap BUN Creatinine Creat Clearance w eGFR POC Glucometer Random Glucose Calcium Total Bilirubin AST ALT Alkaline Phosphatase Total Protein Albumin Sinus rhythm with RBBB Echo: Report Reviewed (Normal left ventricular systolic function) Imaging - Results Chest X-ray: Report Reviewed (Unremarkable) X-ray: Report Reviewed (Hip - right femur fracture) EKG: Report Reviewed Assessment/Plan 1. Mechanical fall resulting in right hip fracture 2. Hypertension 3. Liver CA s/p orthotic liver transplant 4. Underlying dementia 5. Unsteady gait 6. Insulin dependent diabetes mellitus 7. Anemia PLAN: 1. There is no absolute contraindication in proceeding with hip surgery in view of absence of ischemic symptoms, decompensated congestive heart failure or malignant arrhythmia. 2. Continue present medication including Amlodipine 3. Continue DVT and GI prophylaxis 4. Continue immunosuppresive for post liver transplantation 5. Transthoracic echocardiography was reviewed which revealed normal left ventricular systolic function, mild mitral and tricuspid valve regurgitation Further plans are to follow Austin Ramirez MD
[2016-10-11] MEDS: URSODIOL 300 MG CAPSULE PO SCH (10:57)
[2016-10-11] MEDS: CYCLOSPORINE 25 MG PO SCH (10:57)
[2016-10-11] MEDS: LIPASE/PROTEASE/AMYLASE 36,000 UNIT CAPSULE PO SCH (10:57)
[2016-10-11] MEDS: RIVASTIGMINE TD SCH (10:58)
[2016-10-11] MEDS: FLUTICASONE PROP 0.05% 16 GM NASAL SPRAY NS SCH (10:58)
[2016-10-11] MEDS: PANTOPRAZOLE 40 MG TABLET (FP) PO SCH (10:58)
[2016-10-11] MEDS: amLODIPine BESYLATE 5 MG TABLET (FP) PO SCH (10:58)
--- NOTE | 2016-10-11 12:28 | PN ---
Physical Exam: SUBJECTIVE: Patient seen and examined, He says hes doing "ok" he is still in pain. per RN hes had decreased appetite for a few days and no bm. He denies abd pain or cramping OBJECTIVE: Vital Signs Period Temp Pulse Resp BP Sys/Puentes Pulse Ox Last 24 Hr 98.3 F-99.3 F 56-71 18-20 107-131/53-69 93 PE Neuro: alert, awake, cn 2-12intact, oriented to person, place, responds to basic questions Pulm: CTA CV: s1 s2 rrr no mrg Abd: RUQ transverse scar healed, abd soft, non distended +bc Ext: R hip tenderness, warm, no pedal edema Msk: r knee swelling, +tenderness Laboratory Results - last 24 hr 10/11/16 10/11/16 10/11/16 07:45 07:45 07:45 WBC 7.5 RBC 2.99 L Hgb 10.0 L Hct 29.7 L MCV 99.5 H MCHC 33.8 RDW 13.4 Plt Count 125 L MPV 8.0 Neutrophils % 73.4 Lymphocytes % 17.4 D Monocytes % 6.8 Eosinophils % 2.0 D Basophils % 0.4 INR 1.33 H Sodium 139 Potassium 3.9 Chloride 106 Carbon Dioxide 23 Anion Gap 10 BUN 19 H Creatinine 1.0 Creat Clearance w eGFR > 60 POC Glucometer Random Glucose 104 Calcium 8.2 L Total Bilirubin 0.9 AST 28 ALT 7 L D Alkaline Phosphatase 284 H Total Protein 6.1 L Albumin 2.1 L Active Medications Generic Name Dose Route Start Last Admin Trade Name Lilia PRN Reason Stop Dose Admin Amlodipine Besylate 5 mg 10/10/16 10:00 10/11/16 10:58 Norvasc - PO Not Given DAILY CATIE Carbidopa/Levodopa 1 combo 10/10/16 22:00 10/11/16 05:04 Sinemet *Cr* 25/100 - PO Not Given TID CATIE Enoxaparin Sodium 40 mg 10/11/16 10:00 10/11/16 10:58 Lovenox - SQ Not Given DAILY CATIE Fluticasone Propionate 1 spray 10/10/16 10:00 10/11/16 10:58 Flonase - NS Not Given DAILY CATIE Sodium Chloride 1,000 mls @ 83 mls/hr 10/10/16 19:26 10/10/16 22:14 Normal Saline - IV 83 mls/hr ASDIR CATIE Administration Insulin Aspart 1 vial 10/10/16 07:00 10/11/16 11:57 Novolog Vial Sliding Scale - SQ Not Given ACHS [facility] Protocol Lamivudine 300 mg 10/10/16 10:00 10/11/16 10:57 Epivir - PO Not Given DAILY [facility] Morphine Sulfate 2 mg 10/09/16 21:35 10/11/16 10:53 Morphine Injection - IVPUSH 2 mg Q6H PRN Administration PAIN Non-Formulary Medication 25 mg 10/10/16 10:00 10/11/16 10:57 Cyclosporine [Cyclosporine] PO Not Given DAILY [facility] Patient's Own 1 each 10/10/16 21:00 10/11/16 10:58 Medication (Non- TD Not Given Formulary) ( DAILY [facility] Rivastigmine [Exelon 4.6mg] Patch) Non-Formulary Medication 2.5 ml 10/10/16 10:00 Olopatadine Hcl [Pataday] OP DAILY [facility] Non-Formulary Medication 1 each 10/10/16 10:00 [place]-3/Dha/Epa/Fish Oil [[place] 3 500 Softgel] PO DAILY [facility] Pancrelipase 1 cap 10/10/16 10:00 10/11/16 10:57 [place] Munoz 36,000 Units Capsule PO Not Given DAILY [facility] Pantoprazole Sodium 40 mg 10/10/16 10:00 10/11/16 10:58 Protonix - PO Not Given DAILY [facility] Ursodiol 300 mg 10/10/16 10:00 10/11/16 10:57 Actigal - PO Not Given DAILY [facility] Imaging: - ECHO 10/10: nml lv size, fxn, mild mr, tr, borderline aortic root dilation Assessment: 81 year old male with a PMHx of: HTN, IDDM, LIver Transplant s/p Liver Ca (on Cyclosporine), Anemia, Dementia admitted s/p fall with Right Intertrochanteric Hip Fx. Plan 1. Right Intertrochanteric Fx - For surgery today - No absolute contraindication in proceeding with hip surgery per cardiology - Continue lovenox 40mg daily - IVF 83cc/hr - Check CXR in AM 2. HTN - Controlled - Norvasc 5 daily 3. Anemia - Mild drop; will trend - Transfuse if Hgb < 7.0 4. DM II - Sugars controlled - ISS, BGM ACHS - Check hgb a1c 5. Liver Transplant - Continue Cyclosporine daily 6. ? HIV exposure vs ppx - Epivir 7. Dementia - Continue Exelon Patch 8. Parkinson - Continue Carbidopa/Levodopa 9. Gallstone prevention - Continue actigall, pancrelipase Visit type - Emergency Visit Emergency Visit: Yes ED Registration Date: 10/09/16 Care time: The patient presented to the Emergency Department on the above date and was hospitalized for further evaluation of their emergent condition. - New Patient This patient is new to me today: Yes Date on this admission: 10/12/16 - Critical Care Critical Care patient: No
[2016-10-11] MEDS ORDERED: PT OWN MED DRAWER 7, Y5N ONE ×2 (12:53→17:15)
[2016-10-11] MEDS ORDERED: ceFAZolin SODIUM 1 GM VIAL ONE (13:45)
[2016-10-11] MEDS ORDERED: ceFAZolin SODIUM 1 GM VIAL IVPB ONE (13:50)
[2016-10-11] MEDS ORDERED: SODIUM CHLORIDE 0.45% 1,000 ML IV SCH (14:45)
[2016-10-11] MEDS ORDERED: ONDANSETRON 4 MG/2 ML VIAL ONE (14:52)
[2016-10-11] MEDS ORDERED: ONDANSETRON 4 MG/2 ML VIAL IVPUSH PRN (14:56)
[2016-10-11] MEDS ORDERED: LACTATED RINGERS SOLUTION 1,000 ML IV SCH (15:00)
[2016-10-11] MEDS: CEFAZOLIN (PRE-DOCKED) 50 ML IVPB SCH (17:33)
[2016-10-11] MEDS: SODIUM CHLORIDE 1,000 ML IV SCH ×2 (18:03→22:05)
[2016-10-11] MEDS: DOCUSATE SODIUM 100 MG CAPSULE (FP) PO SCH (22:06)
[2016-10-11] MEDS: PATIENT'S OWN MEDICATION (NON-FORMULARY) (Olopatadine Hcl [Pataday] 2.5 ML) OP SCH (23:45)
[2016-10-11] MEDS: PATIENT'S OWN MEDICATION (NON-FORMULARY) (Omega-3/Dha/Epa/Fish Oil [Omega 3 500 Softgel] 1 PO SCH (23:45)
[2016-10-12] MEDS: CEFAZOLIN (PRE-DOCKED) 50 ML IVPB SCH (01:16)
[2016-10-12] MEDS: SODIUM CHLORIDE 1,000 ML IV SCH (06:45)
[2016-10-12] MEDS: INSULIN SLIDING SCALE (NOVOLOG) 1 VIAL SQ SCH ×4 (06:46→21:29)
[2016-10-12 07:14] LABS: BASOPHIL 0.5 % (0-2.0); EOSINOPHIL 1.3 % (0-4.5); MCH 34.2 pg (25.7-33.7); MCHC 34.9 g/dl (32.0-35.9); MEAN CELL VOLUME 98.1 fl (80-96); MEAN PLT VOLUME 8.1 fl (7.5-11.1); NEUTROPHILS 74.8 % (42.8-82.8); PLATELET COUNT 129 K/MM3 (134-434); RDW 13.1 % (11.9-15.9); WHITE BLOOD COUNT 8.3 K/mm3 (4.0-10.0)
[2016-10-12] MEDS ORDERED: PT OWN MED DRAWER 7, Y5N ONE (07:17)
[2016-10-12 07:44] LABS: ANION GAP 8 (8-16); CALCIUM 7.6 mg/dL (8.5-10.1); CO2 25 mmol/L (21-32); COCKROFT - GAULT 64.63; GLUCOSE,RANDOM 109 mg/dL (74-106); PHOSPHOROUS 2.9 mg/dL (2.5-4.9); SGOT/AST 24 U/L (15-37); SGPT/ALT < 6 U/L (12-78)
[2016-10-12 07:45] LABS: ALK PHOS 287 U/L (45-117); TOT PROT 5.7 g/dl (6.4-8.2)
[2016-10-12] MEDS: LIPASE/PROTEASE/AMYLASE 36,000 UNIT CAPSULE PO SCH (09:48)
[2016-10-12] MEDS: lamiVUDine 150 MG TABLET PO SCH (09:48)
[2016-10-12] MEDS: PANTOPRAZOLE 40 MG TABLET (FP) PO SCH (09:48)
[2016-10-12] MEDS: amLODIPine BESYLATE 5 MG TABLET (FP) PO SCH (09:48)
[2016-10-12] MEDS: URSODIOL 300 MG CAPSULE PO SCH (09:48)
[2016-10-12] MEDS: DOCUSATE SODIUM 100 MG CAPSULE (FP) PO SCH ×2 (09:48→21:30)
[2016-10-12] MEDS: FLUTICASONE PROP 0.05% 16 GM NASAL SPRAY NS SCH (09:50)
[2016-10-12] MEDS: CYCLOSPORINE 25 MG PO SCH (09:53)
[2016-10-12] MEDS: PATIENT'S OWN MEDICATION (NON-FORMULARY) (Rivastigmine [Exelon] 1 EACH) TD SCH (09:53)
[2016-10-12] MEDS ORDERED: ENOXAPARIN NA (PORCINE) 40 MG/0.4 ML DISP.SYRIN SQ SCH (10:00)
[2016-10-12] MEDS ORDERED: PATIENT'S OWN MEDICATION (NON-FORMULARY) (Olopatadine Hcl [Pataday] 2.5 ML) OP SCH (10:00)
[2016-10-12] MEDS ORDERED: PATIENT'S OWN MEDICATION (NON-FORMULARY) (Omega-3/Dha/Epa/Fish Oil [Omega 3 500 Softgel] 1 PO SCH (10:00)
--- NOTE | 2016-10-12 11:12 | PN ---
Progress Note (short form) - Note Progress Note: ANESTHESIOLOGY POST-OP CHECK 81M s/p right hip gamma nail under spinal anesthesia, POD #1. No acute complaints. Denies backache, N/V. Tolerating PO, pain / and tolerable. C/o headache, not positional, /10. Vital Signs Temperature 98.1 F 10/12/16 07:59 Pulse Rate 60 10/12/16 07:59 Respiratory Rate 18 10/12/16 07:59 Blood Pressure 124/70 10/12/16 07:59 O2 Sat by Pulse Oximetry (%) 95 10/12/16 09:00 Active Medications Amlodipine Besylate (Norvasc -) 5 mg PO DAILY [facility] Last Admin: 10/12/16 09:48 Dose: 5 mg Carbidopa/Levodopa (Sinemet *Cr* 25/100 -) 1 combo PO TID [facility] Last Admin: 10/12/16 06:45 Dose: 1 combo Docusate Sodium (Colace -) 100 mg PO BID [facility] Last Admin: 10/12/16 09:48 Dose: 100 mg Enoxaparin Sodium (Lovenox -) 40 mg SQ DAILY [facility] Fentanyl (Sublimaze Injection -) 25 mcg IVPUSH [id number] PRN PRN Reason: PAIN Stop: 10/14/16 14:57 Fluticasone Propionate (Flonase -) 1 spray NS DAILY [facility] Last Admin: 10/12/16 09:50 Dose: 1 spray Lactated Ringer's (Lactated Ringers Solution) 1,000 mls @ 75 mls/hr IV ASDIR [facility] Last Admin: 10/11/16 22:05 Dose: Not Given Sodium Chloride (Normal Saline -) 1,000 mls @ 83 mls/hr IV ASDIR [facility] Last Admin: 10/12/16 06:45 Dose: 83 mls/hr Insulin Aspart (Novolog Vial Sliding Scale -) 1 vial SQ ACHS CATIE PRN Reason: Protocol Last Admin: 10/12/16 06:46 Dose: Not Given Lamivudine (Epivir -) 300 mg PO DAILY [facility] Last Admin: 10/12/16 09:48 Dose: 300 mg Morphine Sulfate (Morphine Injection -) 2 mg IVPUSH Q6H PRN PRN Reason: PAIN Last Admin: 10/11/16 23:51 Dose: 2 mg Non-Formulary Medication (Cyclosporine [Cyclosporine]) 25 mg PO DAILY [facility] Last Admin: 10/12/16 09:53 Dose: 25 mg Non-Formulary Medication (Rivastigmine [Exelon]) 1 each TD DAILY [facility] Last Admin: 10/12/16 09:53 Dose: 1 each Non-Formulary Medication (Olopatadine Hcl [Pataday]) 2.5 ml OP DAILY [facility] Non-Formulary Medication ([place]-3/Dha/Epa/Fish Oil [[place] 3 500 Softgel]) 1 each PO DAILY [facility] Pancrelipase (Creon Dr 36,000 Units Capsule) 1 cap PO DAILY [facility] Last Admin: 10/12/16 09:48 Dose: 1 cap Pantoprazole Sodium (Protonix -) 40 mg PO DAILY [facility] Last Admin: 10/12/16 09:48 Dose: 40 mg Ursodiol (Actigal -) 300 mg PO DAILY [facility] Last Admin: 10/12/16 09:48 Dose: 300 mg Gen: Awake, alert Ext: No motor or sensory deficits of lower extremities No apparent anesthesia complications. Pain controlled. Encourtaged increased PO fluid intake, PO analgesics for headache as per primary team. Continue management as per primary team.
[2016-10-12] MEDS: morphine CARPU-JECT 2 MG/1 ML DISP.SYRIN IVPUSH PRN ×2 (11:19→18:50)
[2016-10-12] MEDS ORDERED: INSULIN (NOVOLOG) ASPART 100 UNITS/ML 10ML VIAL ONE ×2 (11:49→16:49)
--- NOTE | 2016-10-12 12:43 | PN ---
Progress Note, Physician History of Present Illness: 81 yo male s/p right hip gamma nail under spinal anesthesia, POD #1. Pain well- managed, denies chest pain or dyspnea. - Current Medication List Current Medications: Active Medications Amlodipine Besylate (Norvasc -) 5 mg PO DAILY [facility] Last Admin: 10/12/16 09:48 Dose: 5 mg Carbidopa/Levodopa (Sinemet *Cr* 25/100 -) 1 combo PO TID [facility] Last Admin: 10/12/16 06:45 Dose: 1 combo Docusate Sodium (Colace -) 100 mg PO BID [facility] Last Admin: 10/12/16 09:48 Dose: 100 mg Enoxaparin Sodium (Lovenox -) 40 mg SQ DAILY [facility] Fentanyl (Sublimaze Injection -) 25 mcg IVPUSH [id number] PRN PRN Reason: PAIN Stop: 10/14/16 14:57 Fluticasone Propionate (Flonase -) 1 spray NS DAILY [facility] Last Admin: 10/12/16 09:50 Dose: 1 spray Lactated Ringer's (Lactated Ringers Solution) 1,000 mls @ 75 mls/hr IV ASDIR [facility] Last Admin: 10/11/16 22:05 Dose: Not Given Sodium Chloride (Normal Saline -) 1,000 mls @ 83 mls/hr IV ASDIR [facility] Last Admin: 10/12/16 06:45 Dose: 83 mls/hr Insulin Aspart (Novolog Vial Sliding Scale -) 1 vial SQ ACHS [facility] PRN Reason: Protocol Last Admin: 10/12/16 11:51 Dose: 2 units Lamivudine (Epivir -) 300 mg PO DAILY [facility] Last Admin: 10/12/16 09:48 Dose: 300 mg Morphine Sulfate (Morphine Injection -) 2 mg IVPUSH Q6H PRN PRN Reason: PAIN Last Admin: 10/12/16 11:19 Dose: 2 mg Non-Formulary Medication (Cyclosporine [Cyclosporine]) 25 mg PO DAILY [facility] Last Admin: 10/12/16 09:53 Dose: 25 mg Non-Formulary Medication (Rivastigmine [Exelon]) 1 each TD DAILY [facility] Last Admin: 10/12/16 09:53 Dose: 1 each Non-Formulary Medication (Olopatadine Hcl [Pataday]) 2.5 ml OP DAILY [facility] Non-Formulary Medication ([place]-3/Dha/Epa/Fish Oil [[place] 3 500 Softgel]) 1 each PO DAILY [facility] Pancrelipase (Creon Dr 36,000 Units Capsule) 1 cap PO DAILY [facility] Last Admin: 10/12/16 09:48 Dose: 1 cap Pantoprazole Sodium (Protonix -) 40 mg PO DAILY [facility] Last Admin: 10/12/16 09:48 Dose: 40 mg Ursodiol (Actigal -) 300 mg PO DAILY [facility] Last Admin: 10/12/16 09:48 Dose: 300 mg - Objective Vital Signs: Vital Signs Temperature 98.1 F 10/12/16 07:59 Pulse Rate 60 10/12/16 07:59 Respiratory Rate 18 10/12/16 07:59 Blood Pressure 124/70 10/12/16 07:59 O2 Sat by Pulse Oximetry (%) 95 10/12/16 09:00 Constitutional: Yes: No Distress, Calm Neck: Yes: Supple Cardiovascular: Yes: Regular Rate and Rhythm Respiratory: Yes: Regular, CTA Bilaterally Gastrointestinal: Yes: Normal Bowel Sounds, Soft Edema: No Labs: CBC, BMP 10/12/16 06:20 10/12/16 06:20 INR, PTT INR 1.33 (0.82-1.09) H 10/11/16 07:45 Assessment/Plan 1. Mechanical fall resulting in right hip fracture s/p gamma nail POD #1, stable 2. Hypertension 3. Liver CA s/p orthotic liver transplant 4. Underlying dementia 5. Unsteady gait 6. Insulin dependent diabetes mellitus 7. Anemia PLAN: 1. Continue present medication including Amlodipine 5 qd 2. Continue DVT and GI prophylaxis 3. Continue immunosuppresive for post liver transplantation 4. Transthoracic echocardiography was reviewed which revealed normal left ventricular systolic function, mild mitral and tricuspid valve regurgitation
--- NOTE | 2016-10-12 14:34 | PN ---
Progress Note, Physician History of Present Illness: He feels well. Pain is minimal. Did stand earlier with PT. - Current Medication List Current Medications: Active Medications Amlodipine Besylate (Norvasc -) 5 mg PO DAILY [facility] Last Admin: 10/12/16 09:48 Dose: 5 mg Carbidopa/Levodopa (Sinemet *Cr* 25/100 -) 1 combo PO TID [facility] Last Admin: 10/12/16 13:42 Dose: 1 combo Docusate Sodium (Colace -) 100 mg PO BID [facility] Last Admin: 10/12/16 09:48 Dose: 100 mg Enoxaparin Sodium (Lovenox -) 40 mg SQ DAILY [facility] Fentanyl (Sublimaze Injection -) 25 mcg IVPUSH [id number] PRN PRN Reason: PAIN Stop: 10/14/16 14:57 Fluticasone Propionate (Flonase -) 1 spray NS DAILY [facility] Last Admin: 10/12/16 09:50 Dose: 1 spray Lactated Ringer's (Lactated Ringers Solution) 1,000 mls @ 75 mls/hr IV ASDIR [facility] Last Admin: 10/11/16 22:05 Dose: Not Given Sodium Chloride (Normal Saline -) 1,000 mls @ 83 mls/hr IV ASDIR [facility] Last Admin: 10/12/16 06:45 Dose: 83 mls/hr Insulin Aspart (Novolog Vial Sliding Scale -) 1 vial SQ ACHS [facility] PRN Reason: Protocol Last Admin: 10/12/16 11:51 Dose: 2 units Lamivudine (Epivir -) 300 mg PO DAILY [facility] Last Admin: 10/12/16 09:48 Dose: 300 mg Morphine Sulfate (Morphine Injection -) 2 mg IVPUSH Q6H PRN PRN Reason: PAIN Last Admin: 10/12/16 11:19 Dose: 2 mg Non-Formulary Medication (Cyclosporine [Cyclosporine]) 25 mg PO DAILY [facility] Last Admin: 10/12/16 09:53 Dose: 25 mg Non-Formulary Medication (Rivastigmine [Exelon]) 1 each TD DAILY [facility] Last Admin: 10/12/16 09:53 Dose: 1 each Non-Formulary Medication (Olopatadine Hcl [Pataday]) 2.5 ml OP DAILY [facility] Non-Formulary Medication ([place]-3/Dha/Epa/Fish Oil [[place] 3 500 Softgel]) 1 each PO DAILY [facility] Pancrelipase (Creon Dr 36,000 Units Capsule) 1 cap PO DAILY [facility] Last Admin: 10/12/16 09:48 Dose: 1 cap Pantoprazole Sodium (Protonix -) 40 mg PO DAILY [facility] Last Admin: 10/12/16 09:48 Dose: 40 mg Ursodiol (Actigal -) 300 mg PO DAILY [facility] Last Admin: 10/12/16 09:48 Dose: 300 mg - Objective Vital Signs: Vital Signs Temperature 98.0 F 10/12/16 14:28 Pulse Rate 67 10/12/16 14:28 Respiratory Rate 18 10/12/16 07:59 Blood Pressure 100/60 10/12/16 14:28 O2 Sat by Pulse Oximetry (%) 95 10/12/16 09:00 Constitutional: Yes: Well Nourished, No Distress HENT: Yes: Atraumatic, Normocephalic Musculoskeletal: Yes: Other (Dressings CDI, No sign of infection. Smooth ROM of hip. Compartments soft. Neg brittany's sign, calf nontender. NVID.) Labs: CBC, BMP 10/12/16 06:20 10/12/16 06:20 INR, PTT INR 1.33 (0.82-1.09) H 10/11/16 07:45 Assessment/Plan POD #1 S/P right gamma nail -Continue PT WBAT -Pain control -DVT prophalxis -Discharge planning
--- NOTE | 2016-10-12 16:15 | OP ---
DATE OF OPERATION: 10/11/2016 PREOPERATIVE DIAGNOSIS: Right hip intertrochanteric proximal femoral fracture. POSTOPERATIVE DIAGNOSIS: Right hip intertrochanteric proximal femoral fracture. PROCEDURE PERFORMED: Operative fixation of right hip intertrochanteric proximal femoral fracture with intramedullary device ([place] short Gamma nail 125 degrees by 11 mm, 100 mm lag screw, 35 mm distal locking screw). SURGEON: Vargas Gross MD ANESTHESIA: Spinal. INDICATIONS: The patient is an 81-year-old male who sustained a fall and suffered a right unstable intertrochanteric fracture with femoral fracture. He is indicated for operative revision. The risks, benefits and alternatives of surgery were discussed in detail with the family and the patient. He did sustain a left proximal femoral fracture previously. The risks of the surgery include but are not limited to infection, neurovascular injury, nonunion, malunion, hardware failure leg length discrepancy, persistent pain. Sometimes these injuries do not heal properly and require another procedure to get them to heal. All questions were answered and informed consent was obtained. DESCRIPTION OF PROCEDURE: The patient was brought to the operating room via a stretcher. A spinal anesthesia was administered by the anesthesiologist. The patient was then transferred onto the fracture table. All bony prominences were padded, and the right lower extremity was placed in traction and internal rotation, and the left lower extremity in flexion and external rotation. Fluoroscopic images taken before the surgery showed excellent reduction. The hip was then prepped and draped in the usual sterile fashion. Prophylactic IV antibiotics were administered. A time-out was performed. An incision was then made at the appropriate level, proximal to the proximal femur. A guidewire was then inserted under fluoroscopic guidance. A proximal reamer was then inserted, followed by insertion of the nail. The nail was then seated to the appropriate depth. The jig was then used for the guide for the proximal lag screw. A stab wound was made in the though and the guide was then advanced. A drill was then advanced under fluoroscopic guidance into the center center position. A cannulated drill was then passed, followed by a 100-mm lag screw. A set screw was then placed and tightened and backed out a quarter turn. The jig was then used for the distal locking screw. A small stab wound was made in the thigh. A drill was then passed, followed by a 35-mm distal locking screw. AP and lateral x-rays showed all hardware in excellent position and excellent reduction of the hip. The wounds were then copiously irrigated. The deep fascia was closed with interrupted sutures of 1 Vicryl suture. The deep dermal tissue was approximated with 2-0 Vicryl suture, and the skin was closed with juju. A sterile dressing was applied. The patient tolerated the procedure well, without complications. Macy [id number] MTDD
--- NOTE | 2016-10-12 17:12 | PN ---
Physical Exam: SUBJECTIVE: Patient seen and examined. He stool with PT now hes in recliner. He c/p RICHARDS earlier. His pain is less to his hip. OBJECTIVE: Vital Signs Period Temp Pulse Resp BP Sys/Puentes Pulse Ox Last 24 Hr 98.0 F-99.7 F 60-81 18-20 100-141/60-75 95-95 PE Neuro: alert, awake, cn 2-12 intact Pulm: CTAB CV: s1 s2 rrr no mrg Abd: RUQ transverse scar healed, abd soft, non distended +bc Ext: R hip tenderness, dressing in tact, no signs of bleeding Msk: r knee swelling and tenderness improved Laboratory Results - last 24 hr 10/11/16 10/11/16 10/12/16 17:30 21:54 06:20 WBC 8.3 RBC 2.76 L Hgb 9.4 L Hct 27.1 L MCV 98.1 H MCHC 34.9 RDW 13.1 Plt Count 129 L MPV 8.1 Neutrophils % 74.8 Lymphocytes % 15.7 Monocytes % 7.7 Eosinophils % 1.3 Basophils % 0.5 Sodium Potassium Chloride Carbon Dioxide Anion Gap BUN Creatinine Creat Clearance w eGFR POC Glucometer 110 131 Random Glucose Calcium Phosphorus Total Bilirubin AST ALT Alkaline Phosphatase Total Protein Albumin 10/12/16 10/12/16 10/12/16 06:20 06:41 11:47 WBC RBC Hgb Hct MCV MCHC RDW Plt Count MPV Neutrophils % Lymphocytes % Monocytes % Eosinophils % Basophils % Sodium 138 Potassium 4.1 Chloride 105 Carbon Dioxide 25 Anion Gap 8 BUN 16 Creatinine 1.0 Creat Clearance w eGFR > 60 POC Glucometer 125 157 Random Glucose 109 H Calcium 7.6 L Phosphorus 2.9 Total Bilirubin 1.0 AST 24 ALT < 6 L Alkaline Phosphatase 287 H Total Protein 5.7 L Albumin 2.0 L Active Medications Generic Name Dose Route Start Last Admin Trade Name Freq PRN Reason Stop Dose Admin Amlodipine Besylate 5 mg 10/12/16 10:00 10/12/16 09:48 Norvasc - PO 5 mg DAILY [facility] Administration Carbidopa/Levodopa 1 combo 10/11/16 22:00 10/12/16 13:42 Sinemet *Cr* 25/100 - PO 1 combo TID [facility] Administration Docusate Sodium 100 mg 10/11/16 22:00 10/12/16 09:48 Colace - PO 100 mg BID [facility] Administration Enoxaparin Sodium 40 mg 10/12/16 10:00 Lovenox - SQ DAILY [facility] Fentanyl 25 mcg 10/11/16 14:56 Sublimaze Injection - IVPUSH 10/14/16 14:57 [id number] PRN PAIN Fluticasone Propionate 1 spray 10/12/16 10:00 10/12/16 09:50 Flonase - NS 1 spray DAILY [facility] Administration Lactated Ringer's 1,000 mls @ 75 mls/hr 10/11/16 15:00 10/11/16 22:05 Lactated Ringers Solution IV Not Given ASDIR [facility] Sodium Chloride 1,000 mls @ 83 mls/hr 10/11/16 15:08 10/12/16 06:45 Normal Saline - IV 83 mls/hr ASDIR [facility] Administration Insulin Aspart 1 vial 10/11/16 16:30 10/12/16 16:53 Novolog Vial Sliding Scale - SQ Not Given ACHS [facility] Protocol Lamivudine 300 mg 10/12/16 10:00 10/12/16 09:48 Epivir - PO 300 mg DAILY [facility] Administration Morphine Sulfate 2 mg 10/11/16 15:08 10/12/16 11:19 Morphine Injection - IVPUSH 2 mg Q6H PRN Administration PAIN Non-Formulary Medication 25 mg 10/12/16 10:00 10/12/16 09:53 Cyclosporine [Cyclosporine] PO 25 mg DAILY [facility] Administration Non-Formulary Medication 1 each 10/12/16 10:00 10/12/16 09:53 Rivastigmine [Exelon] TD 1 each DAILY [facility] Administration Non-Formulary Medication 2.5 ml 10/12/16 10:00 Olopatadine Hcl [Pataday] OP DAILY [facility] Non-Formulary Medication 1 each 10/12/16 10:00 [place]-3/Dha/Epa/Fish Oil [[place] 3 500 Softgel] PO DAILY [facility] Pancrelipase 1 cap 10/12/16 10:00 10/12/16 09:48 Crejesusita Munoz 36,000 Units Capsule PO 1 cap DAILY [facility] Administration Pantoprazole Sodium 40 mg 10/12/16 10:00 10/12/16 09:48 Protonix - PO 40 mg DAILY [facility] Administration Ursodiol 300 mg 10/12/16 10:00 10/12/16 09:48 Actigal - PO 300 mg DAILY [facility] Administration Imaging: - ECHO 10/10: nml lv size, fxn, mild mr, tr, borderline aortic root dilation Assessment: 81 year old male with a PMHx of: HTN, IDDM, LIver Transplant s/p Liver Ca (on Cyclosporine), Anemia, Dementia admitted s/p fall with Right Intertrochanteric Hip Fx. Plan 1. Right Intertrochanteric Fx - s/p right hip gamma nail 10/11 - Continue lovenox 40mg daily x 1-3 months - Stop fluids - WBAT and PT - DC planning 2. HTN - Norvasc 5 daily 3. Anemia - Stable - Transfuse if Hgb < 7.0 4. DM II - ISS, BGM ACHS 5. Liver Transplant - Continue Cyclosporine daily (pt takes own) 6. ? HIV exposure vs ppx - Epivir 7. Dementia - Continue Exelon Patch 8. Parkinson - Continue Carbidopa/Levodopa 9. Gallstone prevention - Continue actigall, pancrelipase Visit type - Emergency Visit Emergency Visit: Yes ED Registration Date: 10/09/16 Care time: The patient presented to the Emergency Department on the above date and was hospitalized for further evaluation of their emergent condition. - New Patient This patient is new to me today: No - Critical Care Critical Care patient: No
[2016-10-13] MEDS: INSULIN SLIDING SCALE (NOVOLOG) 1 VIAL SQ SCH ×2 (06:04→11:57)
[2016-10-13 07:27] LABS: BASOPHIL 0.5 % (0-2.0); EOSINOPHIL 2.1 % (0-4.5); MCH 34.1 pg (25.7-33.7); MCHC 34.9 g/dl (32.0-35.9); MEAN CELL VOLUME 97.8 fl (80-96); MEAN PLT VOLUME 7.9 fl (7.5-11.1); NEUTROPHILS 70.4 % (42.8-82.8); PLATELET COUNT 140 K/MM3 (134-434); RDW 13.2 % (11.9-15.9); WHITE BLOOD COUNT 7.3 K/mm3 (4.0-10.0)
[2016-10-13 07:50] LABS: CALCIUM 8.2 mg/dL (8.5-10.1); COCKROFT - GAULT 58.76; CREATININE 1.1 mg/dL (0.7-1.3)
[2016-10-13] MEDS: morphine CARPU-JECT 2 MG/1 ML DISP.SYRIN IVPUSH PRN (08:24)
[2016-10-13] MEDS: LIPASE/PROTEASE/AMYLASE 36,000 UNIT CAPSULE PO SCH (10:13)
[2016-10-13] MEDS: URSODIOL 300 MG CAPSULE PO SCH (10:13)
[2016-10-13] MEDS: DOCUSATE SODIUM 100 MG CAPSULE (FP) PO SCH (10:13)
[2016-10-13] MEDS: CYCLOSPORINE 25 MG PO SCH (10:15)
[2016-10-13] MEDS: lamiVUDine 150 MG TABLET PO SCH (10:16)
[2016-10-13] MEDS: amLODIPine BESYLATE 5 MG TABLET (FP) PO SCH (10:17)
[2016-10-13] MEDS: PANTOPRAZOLE 40 MG TABLET (FP) PO SCH (10:18)
[2016-10-13] MEDS: PATIENT'S OWN MEDICATION (NON-FORMULARY) (Rivastigmine [Exelon] 1 EACH) TD SCH (10:19)
[2016-10-13] MEDS: FLUTICASONE PROP 0.05% 16 GM NASAL SPRAY NS SCH (10:21)
--- NOTE | 2016-10-13 13:57 | DS ---
Physical Exam: SUBJECTIVE: Patient seen and examined OBJECTIVE: Vital Signs Period Temp Pulse Resp BP Sys/Puentes Pulse Ox Last 24 Hr 97.9 F-99.5 F 60-67 20-20 90-116/54-66 98 PHYSICAL EXAM Neuro: alert, awake, cn 2-12 intact Pulm: CTAB CV: s1 s2 rrr no mrg Abd: RUQ transverse scar healed, abd soft, non distended +bc Ext: R hip tenderness, dressing in tact, no signs of bleeding Msk: r knee swelling and tenderness improved LABS Laboratory Results - last 24 hr 10/12/16 10/12/16 10/13/16 16:52 21:26 06:03 WBC RBC Hgb Hct MCV MCHC RDW Plt Count MPV Neutrophils % Lymphocytes % Monocytes % Eosinophils % Basophils % Sodium Potassium Chloride Carbon Dioxide Anion Gap BUN Creatinine POC Glucometer 109 131 110 Random Glucose Hemoglobin A1c % Calcium 10/13/16 10/13/16 10/13/16 06:35 06:35 06:35 WBC 7.3 RBC 2.81 L Hgb 9.6 L Hct 27.5 L MCV 97.8 H MCHC 34.9 RDW 13.2 Plt Count 140 MPV 7.9 Neutrophils % 70.4 Lymphocytes % 18.6 Monocytes % 8.4 Eosinophils % 2.1 Basophils % 0.5 Sodium 136 Potassium 4.5 Chloride 101 Carbon Dioxide 26 Anion Gap 9 BUN 18 Creatinine 1.1 POC Glucometer Random Glucose 108 H Hemoglobin A1c % 5.2 Calcium 8.2 L 10/13/16 11:56 WBC RBC Hgb Hct MCV MCHC RDW Plt Count MPV Neutrophils % Lymphocytes % Monocytes % Eosinophils % Basophils % Sodium Potassium Chloride Carbon Dioxide Anion Gap BUN Creatinine POC Glucometer 150 Random Glucose Hemoglobin A1c % Calcium HOSPITAL COURSE: Date of Admission:10/09/16 Date of Discharge: 10/13/16 81 year old male with a PMHx of: HTN, IDDM, LIver Transplant s/p Liver Ca (on Cyclosporine), Anemia, Dementia admitted s/p fall with Right Intertrochanteric Hip Fx. Right Intertrochanteric Fx - s/p right hip gamma nail 5/2 - Continue lovenox 40mg daily x 1-3 months - Stop fluids - WBAT and PT - DC planning HTN - Norvasc 5 daily Anemia - Stable - Transfuse if Hgb < 7.0 DM II - ISS, BGM ACHS Liver Transplant - Continue Cyclosporine daily (pt takes own) Minutes to complete discharge: 60 Discharge Summary Reason For Visit: FRACTURE OF HIP Current Active Problems DVT prophylaxis (Acute) Dementia (Acute) Fall with injury (Acute) Fever (Acute) Hip fracture (Acute) Liver transplant recipient (Acute) Condition: Good - Instructions Diet, Activity, Other Instructions: Discharge with a Right Intertrochanteric Fx with gamma nail on 10/11/2016 Continue Lovenox 40mg daily for another 3 months Please return to the ER with any new or worsening symptoms. Referrals: Brenda Ramirez MD [Primary Care Provider] - Disposition: [facility] - Home Medications Comprehensive Discharge Medication List: Ambulatory Orders Alendronate Na [Fosamax (Weekly)] 70 mg PO Q7D 10/09/16 Amlodipine Besylate [Norvasc -] 5 mg PO DAILY 10/09/16 Cyclosporine 25 mg PO DAILY 10/09/16 Dexlansoprazole [Dexilant] 60 mg PO DAILY 10/09/16 Fluticasone Prop 0.05% Nasal [Flonase -] 1 spray NS DAILY 10/09/16 Lamivudine 300 mg PO DAILY 10/09/16 Lipase/Protease/Amylase [Creon Dr 36,000 Units Capsule] 1 each PO DAILY Olopatadine HCl [Pataday] 2.5 ml OP DAILY 10/09/16 [place]-3/Dha/Epa/Fish Oil [[place] 3 500 Softgel] 1 each PO DAILY 10/09/16 Rivastigmine [Exelon] 1 each TD DAILY PRN 10/09/16 Ursodiol [Actigall] 300 mg PO DAILY 10/09/16 Carbidopa/Levodopa *Cr* 25/100 [Sinemet *Cr* 25/100 -] 1 combo PO TID 10/10/16 Enoxaparin [Lovenox -] 40 mg SQ DAILY #90 syringe 10/13/16 Insulin Sliding Scale [Novolog Vial Sliding Scale -] 1 vial SQ ACHS units 10/13 Ondansetron Injection [Zofran Injection] 4 mg IVPUSH Q6H PRN #0 vial 10/13/16 This patient is new to me today: Yes Date on this admission: 12/06/16 Emergency Visit: Yes ED Registration Date: 10/09/16 Care time: The patient presented to the Emergency Department on the above date and was hospitalized for further evaluation of their emergent condition. Critical Care patient: No - Discharge Referral Referred to [facility] No
[2016-10-13 14:22] VITALS: BP 111/60; PULSE 68; TEMP 98.4
[2016-10-13] MEDS ORDERED: oxyCODONE HCL 5 MG TABLET PO ONE (15:40)
== END 2016-10-13 15:56 | DRG 481 ==
LOC: JER 12:39 → JERBED 16:50 → J5S 22:01 → J6S 10-11 16:36
PROVIDERS: ADMIT Internal Medicine; ATTEND Nurse Practitioner Family
PROC: 0QS604Z Reposition Right Upper Femur with Internal Fixation Device, Open Approach (ICD-10-PCS; principal; 2016-10-10)
DX: S72.141A Displaced intertrochanteric fracture of right femur, initial encounter for closed fracture (principal); Z94.4 Liver transplant status; W18.11XA Fall from or off toilet without subsequent striking against object, initial encounter; Y92.031 Bathroom in apartment as the place of occurrence of the external cause; Z85.05 Personal history of malignant neoplasm of liver; F03.90 Unspecified dementia, unspecified severity, without behavioral disturbance, psychotic disturbance, mood disturbance, and anxiety; E11.9 Type 2 diabetes mellitus without complications; Z79.4 Long term (current) use of insulin; K21.9 Gastro-esophageal reflux disease without esophagitis; D64.9 Anemia, unspecified; R26.81 Unsteadiness on feet; I10 Essential (primary) hypertension; G20 Parkinson's disease
CPT/HCPCS: 36415; 70450-TC; 71010-TC; 72125-TC; 73523-TC; 73552-TC-RT; 76000-TC; 80048; 80053; 81003; 82550; 83036; 83735; 83880; 84100; 84484; 85025; 85027; 85610; 87040; 87086; 93005; 93010; 93306-TC; 94760; 97116-GP; 97161-GP; 99284-25

== ENCOUNTER 2017-07-09 18:43 | Inpatient (IN) | payer OTHER ==
[2017-07-09 19:03] VITALS: BMI 28.8
[2017-07-09] MEDS ORDERED: SODIUM CHLORIDE 0.9% 1000 ML INFUS.BAG IV PRN (19:16)
[2017-07-09] MEDS ORDERED: SODIUM CHLORIDE 0.9% 1000 ML INFUS.BAG IV STA (19:16)
[2017-07-09] MEDS ORDERED: ACETAMINOPHEN 650 MG SUPP.RECT PR ONE (19:19)
--- NOTE | 2017-07-09 19:20 | PDOC ---
History of Present Illness <Melia Ford - Last Filed: 07/10/17 01:08> - General History Source: Care Provider ( is the historian) - History of Present Illness Initial Comments: 07/09/17 19:19 81 year old male with fever and lethargy x 1 week as per . denies cough, runny nose, abdominal pain, NVD. occasional dry cough noted. as per patient with decreased PO intake. Patient has a past medical history of Hypertension, IDDM, Liver Transplant s/p Liver Ca (on Cyclosporine), Anemia, Dementia. PMD: Dr. Alejandro ([place], [place]) Timing/Duration: 1 week Severity: severe <Allison Richardson - Last Filed: 07/10/17 01:28> - General Chief Complaint: Lethargy Stated Complaint: FEVER Time Seen by Provider: 07/09/17 19:16 Past History <Melia Ford - Last Filed: 07/10/17 01:08> - Past Medical History Anemia: Yes Cancer: Yes (liver) Dementia: Yes Diabetes: Yes (IDDM) GI Disorders: Yes (GASTROESOPHAGEAL REFLUX) HTN: Yes - Surgical History Abdominal Surgery: Yes (LIVER TRANSPLANT: 1995) Orthopedic Surgery: Yes (LT HIP SURGERY) - Suicide/Smoking/Psychosocial Hx Smoking History: Never smoked Have you smoked in the past 12 months: No Information on smoking cessation initiated: No Hx Alcohol Use: No Drug/Substance Use Hx: No Substance Use Type: None Hx Substance Use Treatment: No <Allison Richardson - Last Filed: 07/10/17 01:28> - Past Medical History Allergies/Adverse Reactions: Allergies Allergy/AdvReac Type Severity Reaction Status Date / Time No Known Allergies Allergy Verified 07/09/17 19:00 Home Medications: Ambulatory Orders Alendronate Na [Fosamax (Weekly)] 70 mg PO Q7D 10/09/16 Amlodipine Besylate [Norvasc -] 5 mg PO DAILY 10/09/16 Cyclosporine 25 mg PO DAILY 10/09/16 Dexlansoprazole [Dexilant] 60 mg PO DAILY 10/09/16 Fluticasone Prop 0.05% Nasal [Flonase -] 1 spray NS DAILY 10/09/16 Lamivudine 300 mg PO DAILY 10/09/16 Lipase/Protease/Amylase [Hood Munoz 36,000 Units Capsule] 1 each PO DAILY 04/30/ 17 Olopatadine HCl [Pataday] 2.5 ml OP DAILY 10/09/16 [place]-3/Dha/Epa/Fish Oil [[place] 3 500 Softgel] 1 each PO DAILY 10/09/16 Rivastigmine [Exelon] 1 each TD DAILY PRN 10/09/16 Ursodiol [Actigall] 300 mg PO DAILY 10/09/16 Carbidopa/Levodopa *Cr* 25/100 [Sinemet *Cr* 25/100 -] 1 combo PO TID 10/10/16 Enoxaparin [Lovenox -] 40 mg SQ DAILY #90 syringe 10/13/16 Insulin Sliding Scale [Novolog Vial Sliding Scale -] 1 vial SQ ACHS units 10/13 Ondansetron Injection [Zofran Injection] 4 mg IVPUSH Q6H PRN #0 vial 10/13/16 Review of Systems - Review of Systems Able to Perform ROS?: Yes Is the patient limited [place] proficient: No Constitutional: Yes: Fever Respiratory: Yes: Cough Cardiac (ROS): No: Symptoms Reported, See HPI, Chest Pain, Edema, Irregular Heart Rate, Lightheadedness, Palpitations, Syncope, Chest Tightness, Other ABD/GI: No: Symptoms Reported, See HPI, Abdominal Distended, Abd. Pain w/ defecation, Blood Streaked Bowels, Constipated, Diarrhea, Difficulty Swallowing , Nausea, Poor Appetite, Poor Fluid Intake, Rectal Bleeding, Vomiting, Indigestion, Abdominal cramping, Tarry Stools, Other Integumentary: Yes: Change in Color Neurological: No: Symptoms reported, See HPI, Headache, Numbness, Paresthesia, Pre-Existing Deficit, Seizure, Tingling, Tremors, Weakness, Unsteady Gait, Ataxia, Dizziness, Other Psychiatric: No: Anxiety, Depression, Frequent Crying, Stressors, Sleep Pattern Change, Emotional Problems, Mood Swings, Change in Appetite, Other <Allison Richardson - Last Filed: 07/10/17 01:28> *Physical Exam - Vital Signs Last Vital Signs Temp Pulse Resp BP Pulse Ox 100.5 F H 78 18 98/78 98 07/09/17 21:54 07/09/17 20:53 07/09/17 20:53 07/09/17 20:53 07/09/17 19:00 <Melia Ford - Last Filed: 07/10/17 01:08> - Vital Signs Last Vital Signs Temp Pulse Resp BP Pulse Ox 103.7 F H 88 16 104/57 98 07/09/17 19:00 07/09/17 19:00 07/09/17 19:00 07/09/17 19:00 07/09/17 19:00 - Physical Exam General Appearance: Yes: Moderate Distress Respiratory/Chest: positive: Rales. negative: Chest Tender, Lungs Clear, Normal Breath Sounds, Respiratory Distress, Accessory Muscle Use, Labored Respiration, Rapid RR, Decreased Breath Sounds, Paradoxal Breathing, Crackles, Rhonchi, Stridor, Wheezing, Hyperresonant, Dullness, Plerual Rub, Other Cardiovascular: positive: Regular Rhythm, Regular Rate Gastrointestinal/Abdominal: positive: Distended, Hepatomegaly. negative: Tender Extremity: positive: Normal Inspection, Normal Range of Motion Integumentary: positive: Warm, Jaundice Neurologic: positive: Alert, Responsive (to verbal stimuli) <Allison Richardson - Last Filed: 07/10/17 01:28> Heart Score/ECG Review - ECG Intrepretation Rhythm: Regular Rhythm Comment:: 07/09/17 22:25 Sinus rhythm with PACs . Right bundle Branch Block <Allison Richardson - Last Filed: 07/10/17 01:28> ED Treatment Course - LABORATORY CBC & Chemistry Diagram: 07/09/17 20:00 07/09/17 20:00 - ADDITIONAL ORDERS Additional order review: Laboratory Results 07/09/17 07/09/17 07/09/17 23:08 20:00 20:00 PT with INR INR PTT (Actin FS) VBG pH POC VBG pCO2 POC VBG pO2 Mixed VBG HCO3 Sodium Potassium Chloride Carbon Dioxide Anion Gap BUN Creatinine Creat Clearance w eGFR Random Glucose Lactic Acid Calcium Total Bilirubin AST ALT Alkaline Phosphatase Creatine Kinase Troponin I B-Natriuretic Peptide 3076.09 H Total Protein Albumin Lipase 306 Urine Color Caitlin Urine Appearance Clear Urine pH 5.0 D Ur Specific [place] 1.020 Urine Protein Negative Urine Glucose (UA) Negative Urine Ketones Trace H Urine Blood Negative Urine Nitrite Negative Urine Bilirubin 4.0 Urine Urobilinogen 4.0 e.u/dl Ur Leukocyte Esterase Negative Blood Type B POSITIVE Antibody Screen Negative 07/09/17 07/09/17 07/09/17 20:00 20:00 20:00 PT with INR INR PTT (Actin FS) VBG pH 7.39 POC VBG pCO2 30.3 L D POC VBG pO2 38.7 D Mixed VBG HCO3 17.9 L Sodium 137 Potassium 3.9 Chloride 107 Carbon Dioxide 20 L D Anion Gap 10 BUN 22 H D Creatinine 1.4 H D Creat Clearance w eGFR 48.76 Random Glucose 96 Lactic Acid 1.1 Calcium 6.5 L* D Total Bilirubin 7.2 H D AST 39 H D ALT 11 L D Alkaline Phosphatase 417 H D Creatine Kinase 45 Troponin I < 0.02 B-Natriuretic Peptide Total Protein 6.8 Albumin 2.0 L Lipase Urine Color Urine Appearance Urine pH Ur Specific [place] Urine Protein Urine Glucose (UA) Urine Ketones Urine Blood Urine Nitrite Urine Bilirubin Urine Urobilinogen Ur Leukocyte Esterase Blood Type Antibody Screen 07/09/17 20:00 PT with INR 14.30 H INR 1.27 H PTT (Actin FS) 27.7 VBG pH POC VBG pCO2 POC VBG pO2 Mixed VBG HCO3 Sodium Potassium Chloride Carbon Dioxide Anion Gap BUN Creatinine Creat Clearance w eGFR Random Glucose Lactic Acid Calcium Total Bilirubin AST ALT Alkaline Phosphatase Creatine Kinase Troponin I B-Natriuretic Peptide Total Protein Albumin Lipase Urine Color Urine Appearance Urine pH Ur Specific [place] Urine Protein Urine Glucose (UA) Urine Ketones Urine Blood Urine Nitrite Urine Bilirubin Urine Urobilinogen Ur Leukocyte Esterase Blood Type Antibody Screen 07/09/17 19:30 Influenza Types A,B Antigen (MARISEL) - Final Nasopharyngeal Swab - Final 07/09/17 20:00 RBC 2.79 L MCV 98.2 H MCHC 33.7 RDW 15.2 D MPV 8.9 D Neutrophils % 95.9 H Lymphocytes % 2.3 L D Monocytes % 1.5 L D Eosinophils % 0.2 D Basophils % 0.1 - RADIOLOGY Radiology Studies Ordered: Category Date Time Status ABDOMEN US -LIMITED [US] Stat Ultrasound 07/09/17 22:41 Taken - Medications Given in the ED: ED Medications Discontinued Medications Generic Name Dose Route Start Last Admin Trade Name Freq PRN Reason Stop Dose Admin Acetaminophen 650 mg 07/09/17 19:19 07/09/17 19:37 Tylenol Suppository - RI 07/09/17 19:20 650 mg ONCE ONE Administration Albuterol Sulfate 1 amp 07/09/17 21:54 07/09/17 22:53 Ventolin 0.083% Nebulizer Soln - NEB 07/09/17 21:55 1 amp ONCE ONE Administration Sodium Chloride 1,000 mls @ 125 mls/hr 07/09/17 22:00 07/09/17 23:08 Normal Saline - IV Not Given ASDIR CATIE Sodium Chloride 1,724 ml 07/09/17 19:16 07/09/17 20:10 Normal Saline - 20 ml/kg (1724 ml) 07/09/17 19:17 1,724 ml IV Administration ONCE STA <Melia Ford - Last Filed: 07/10/17 01:08> - LABORATORY CBC & Chemistry Diagram: 07/09/17 20:00 07/09/17 20:00 - RADIOLOGY Chest X-Ray Result: No Infiltrates (official read pending.) <Allison Richardson - Last Filed: 07/10/17 01:28> Medical Decision Making - Critical Care Time Total Critical Care Time (minutes): 15 Critical Care Statement: central line placed by myself in patient's groin <Melia Ford - Last Filed: 07/10/17 01:08> - Critical Care Time Total Critical Care Time (minutes): 60 Critical Care Statement: The care of this patient involved high complexity decision making to prevent further life threatening deterioration of the patient 's condition and/or to evaluate & treat vital organ system(s) failure or risk of failure. - Medical Decision Making 07/09/17 22:30 A: fever, CHF exacerbation; hyperbilirubenemia 07/09/17 23:08 Patient history of liver CA and transplant in 1995 at [facility]. contacted [facility] transfer center. i spoke to Marielena at the in school suspension coordinator. pending acceptance of transfer. 07/09/17 23:39 I spoke to Marielena from [facility]. patient maybe accepted after [address] austin ( Package Worker) at [facility]> patient signed out to Hospitalist Dr. Desouza. 07/10/17 00:11 CTAP; intrahepatic and extrahepatic biliary ductal dilitation due to multiple gall stones in the intrahepatic and exhepatic bile ducts. ICU MEDICAL AND HEALTH SERVICES MANAGER Carter accepting patient to The ICU until transfer to transplant service at [facility]. [facility] liver in school suspension coordinator made aware of CTAP results and current status of patient. Advised to Stabilize patient and transfer to [facility] in the Am. <Allison Richardson - Last Filed: 07/10/17 01:28> *DC/Admit/Observation/Transfer <Melia Ford - Last Filed: 07/10/17 01:08> - Discharge Dispostion Admit: Yes <Allison Richardson - Last Filed: 07/10/17 01:28> Diagnosis at time of Disposition: Hyperbilirubinemia, Hypocalcemia, Cholangitis of transplanted liver Sepsis Qualifiers: Sepsis type: sepsis due to unspecified organism Qualified Code(s): A41.9 - Sepsis, unspecified organism Fever Qualifiers: Fever type: unspecified Qualified Code(s): R50.9 - Fever, unspecified CHF (congestive heart failure) Qualifiers: Congestive heart failure type: unspecified Congestive heart failure chronicity : acute Qualified Code(s): I50.9 - Heart failure, unspecified Hypotension Qualifiers: Hypotension type: unspecified hypotension type Qualified Code(s): I95.9 - Hypotension, unspecified - Referrals Referrals: Vini Ramirez [Primary Care Provider] -
[2017-07-09] MEDS ORDERED: ACETAMINOPHEN 650 MG SUPP.RECT ONE (19:26)
[2017-07-09 20:08] LABS: BASO % 0.1 % (0-2.0); EOS % 0.2 % (0-4.5); HEMATOCRIT 27.4 % (35.4-49); HEMOGLOBIN 9.2 GM/dL (11.7-16.9); LYMPH % 2.3 % (8-40); MCH 33.1 pg (25.7-33.7); MCHC 33.7 g/dl (32.0-35.9); MEAN CELL VOLUME 98.2 fl (80-96); MEAN PLT VOLUME 8.9 fl (7.5-11.1); MONO % 1.5 % (3.8-10.2); NEUT % 95.9 % (42.8-82.8); PLATELET COUNT 141 K/MM3 (134-434); RBC 2.79 M/mm3 (4.00-5.60); RDW 15.2 % (11.9-15.9); WHITE BLOOD COUNT 11.5 K/mm3 (4.0-10.0)
[2017-07-09 20:12] LABS: VENOUS PC02 30.3 mmHg (38-52); VENOUS PH 7.39 (7.32-7.42); VENOUS PO2 38.7 mmHg (28-48)
[2017-07-09 20:19] LABS: INR 1.27 (0.82-1.09); PROTHROMBIN TIME (PATIENT) 14.3 SEC (9.98-11.88)
[2017-07-09 20:21] LABS: ACTIVATED PTT 27.7 SECONDS (26.9-34.4)
[2017-07-09 20:31] LABS: ANION GAP 10 (8-16); BILIRUBIN,TOTAL 7.2 mg/dL (0.2-1.0); BLOOD UREA NITROGEN 22 mg/dL (7-18); CHLORIDE 107 mmol/L (98-107); CO2 20 mmol/L (21-32); CREATININE 1.4 mg/dL (0.7-1.3); GLUCOSE,RANDOM 96 mg/dL (74-106); POTASSIUM 3.9 mmol/L (3.5-5.1); SGOT/AST 39 U/L (15-37); SGPT/ALT 11 U/L (12-78); SODIUM 137 mmol/L (136-145); TOT PROT 6.8 g/dl (6.4-8.2)
[2017-07-09 20:33] LABS: ALK PHOS 417 U/L (45-117)
[2017-07-09 20:36] LABS: CALCIUM 6.5 mg/dL (8.5-10.1)
[2017-07-09] MEDS: CALCIUM 500MG/VIT-D 200 UNITS COMBO TABLET (FP) PO SCH (21:50)
[2017-07-09] MEDS ORDERED: ALBUTEROL SO4 0.083% IH SOL 2.5 MG/3 ML VIAL.NEB. NEB ONE ×2 (21:54→22:54)
[2017-07-09] MEDS ORDERED: SODIUM CHLORIDE 1,000 ML IV SCH (22:00)
[2017-07-09 22:12] LABS: N-TERMINAL BNP 3076.09 pg/ml (5-450)
[2017-07-09 23:15] LABS: URINE APPEARANCE CLEAR; URINE BLOOD NEGATIVE (NEGATIVE); URINE COLOR AMBER; URINE GLUCOSE (UA) NEGATIVE (NEGATIVE); URINE KETONE TRACE (NEGATIVE); URINE LEUK ESTERASE NEGATIVE (NEGATIVE); URINE NITRITE NEGATIVE (NEGATIVE); URINE PROTEIN NEGATIVE (NEGATIVE); URINE UROBILINOGEN 4.0 E.U/dl mg/dL (0.2-1.0)
[2017-07-09] MEDS ORDERED: OSELTAMIVIR PHOSPHATE 30 MG CAPSULE PO ONE (23:42)
--- NOTE | 2017-07-09 23:45 | PN ---
Teaching Attending Note Name of Resident: Abner Oleary ATTENDING PHYSICIAN STATEMENT I saw and evaluated the patient. I reviewed the resident's note and discussed the case with the resident. I agree with the resident's findings and plan as documented. SUBJECTIVE: 81 yo M with Pmhx of HTN, IDDM, Liver transplant on Cyclosporine, Anemia, dementia, who presents with fever and decreased PO intake. [employer] phone malfunctioning and pt. is Welsh speaking, poor historian at bedside. Hx. Obtained from Chart OBJECTIVE: Physical: VS: Vital Signs Period Temp Pulse Resp BP Sys/Puentes Pulse Ox Last 24 Hr 100.5 F-103.7 F 78-88 16-18 98-104/57-78 98 GEN: NAD, resting in bed HEENT: NCAT, PERRL, Scleral Icterus, throat without erythema or exudates CARD:RRR S1, S2 RESP: CTAB ABD: BSx4, NTD to palpation EXT:- C/C/E CBCD WBC 11.5 K/mm3 (4.0-10.0) H D 07/09/17 20:00 RBC 2.79 M/mm3 (4.00-5.60) L 07/09/17 20:00 Hgb 9.2 GM/dL (11.7-16.9) L 07/09/17 20:00 Hct 27.4 % (35.4-49) L 07/09/17 20:00 MCV 98.2 fl (80-96) H 07/09/17 20:00 MCHC 33.7 g/dl (32.0-35.9) 07/09/17 20:00 RDW 15.2 % (11.9-15.9) D 07/09/17 20:00 Plt Count 141 K/MM3 (134-434) 07/09/17 20:00 MPV 8.9 fl (7.5-11.1) D 07/09/17 20:00 CMP Sodium 137 mmol/L (136-145) 07/09/17 20:00 Potassium 3.9 mmol/L (3.5-5.1) 07/09/17 20:00 Chloride 107 mmol/L (98-107) 07/09/17 20:00 Carbon Dioxide 20 mmol/L (21-32) L D 07/09/17 20:00 Anion Gap 10 (8-16) 07/09/17 20:00 BUN 22 mg/dL (7-18) H D 07/09/17 20:00 Creatinine 1.4 mg/dL (0.7-1.3) H D 07/09/17 20:00 Creat Clearance w eGFR 48.76 (>60) 07/09/17 20:00 Random Glucose 96 mg/dL (74-106) 07/09/17 20:00 Calcium 6.5 mg/dL (8.5-10.1) L* D 07/09/17 20:00 Total Bilirubin 7.2 mg/dL (0.2-1.0) H D 07/09/17 20:00 AST 39 U/L (15-37) H D 07/09/17 20:00 ALT 11 U/L (12-78) L D 07/09/17 20:00 Alkaline Phosphatase 417 U/L (45-117) H D 07/09/17 20:00 Total Protein 6.8 g/dl (6.4-8.2) 07/09/17 20:00 Albumin 2.0 g/dl (3.4-5.0) L 07/09/17 20:00 CARDIAC ENZYMES Creatine Kinase 45 IU/L (39-308) 07/09/17 20:00 Troponin I < 0.02 ng/ml (0.00-0.05) 07/09/17 20:00 Ambulatory Orders Alendronate Na [Fosamax (Weekly)] 70 mg PO Q7D 10/09/16 Amlodipine Besylate [Norvasc -] 5 mg PO DAILY 10/09/16 Cyclosporine 25 mg PO DAILY 10/09/16 Dexlansoprazole [Dexilant] 60 mg PO DAILY 10/09/16 Fluticasone Prop 0.05% Nasal [Flonase -] 1 spray NS DAILY 10/09/16 Lamivudine 300 mg PO DAILY 10/09/16 Lipase/Protease/Amylase [Hood Dr 36,000 Units Capsule] 1 each PO DAILY Olopatadine HCl [Pataday] 2.5 ml OP DAILY 10/09/16 [place]-3/Dha/Epa/Fish Oil [[place] 3 500 Softgel] 1 each PO DAILY 10/09/16 Rivastigmine [Exelon] 1 each TD DAILY PRN 10/09/16 Ursodiol [Actigall] 300 mg PO DAILY 10/09/16 Carbidopa/Levodopa *Cr* 25/100 [Sinemet *Cr* 25/100 -] 1 combo PO TID 10/10/16 Enoxaparin [Lovenox -] 40 mg SQ DAILY #90 syringe 10/13/16 Insulin Sliding Scale [Novolog Vial Sliding Scale -] 1 vial SQ ACHS units 10/13 Ondansetron Injection [Zofran Injection] 4 mg IVPUSH Q6H PRN #0 vial 10/13/16 CT ABD/PELVIS: Mildly enlarged perocardial LN. Multiple epigastric Ventral Hernia. Numerous small low attentuation hepatic lesions and numerous hepatic calcifications. Bilateral perinephric edema and renal cysts. Non-Obstructing left intrarenal calculous. L. Sided Varices. INTRAhepatic and Extrahepatic biliary ductal dilitation due to multiple gallstones in the intra/extra hepatic ducts. ASSESMENT/PLAN: 81 yo M with Pmhx of HTN, IDDM, Liver transplant on Cyclosporine, Anemia, dementia, who presents with fever and decreased PO intake, found to have Severe sepsis due to acute Cholangitis 1.) Severe Sepsis - Immunocompromised - Most likely due to Acute Cholangitis - [facility] transfer center was called for transfer to do ERCP by ED, Marielena was spoken to and they stated anatomical embalmer (Dr. Clark) would take pt. after 8 am, for possible ERCP - Zosyn, will add Vanco due to immunocompromise - Repeat LA - Central Line/Levophed, pt. with inc BNP- would avoid inc. IVF - Cobos Cx 2.) Hx. OF Liver Tx - C/W Cyclosporine - Chk. Levels 3.) HTN - Hold ALL ant-HTN meds 4.) IDDM - FS - RAISS 5.) Normocytic Anemia - Fe studies/B12/Folate outpt. 6.) Dvt Ppx - SCDS Place in ICU CC Time: 45 minutes
[2017-07-09] MEDS ORDERED: PIPERACILLIN/TAZOB 3.375 GM 3.375 GM in DEXTROSE 5%-WATER - 100 ML IVPB ONE (23:52)
[2017-07-09] MEDS ORDERED: VANCOMYCIN 1,250 MG in DEXTROSE 5%-WATER - 250 ML IVPB ONE (23:54)
[2017-07-10] MEDS ORDERED: SODIUM CHLORIDE IVPB ONE (00:05)
[2017-07-10] MEDS ORDERED: TOBRAMYCIN SULFATE IVPB ONE (00:05)
[2017-07-10] MEDS ORDERED: NOREPINEPHRINE BITARTRATE 4,000 MCG in DEXTROSE 5%-WATER - 496 ML IV SCH (01:00)
--- NOTE | 2017-07-10 01:20 | HP ---
CHIEF COMPLAINT: fever PCP: Dr. Alejandro ([place], [place]) HISTORY OF PRESENT ILLNESS: 81 yo M with Pmhx of HTN, IDDM, Liver transplant on Cyclosporine, Anemia, dementia, who presents with fever and decreased PO intake. [employer] phone malfunctioning and pt. is Swedish speaking, poor historian at bedside. Hx. Obtained from ED Chart ER course was notable for: (1)bilrubin 7.2, ca 6.5, alp 417, cr 1.4 (2)CT - cholangitis (3)NS 1724 ml, albuterol inhaler. Recent Travel: no PAST MEDICAL HISTORY: HTN, IDDM, Liver transplant on Cyclosporine Anemia dementia PAST SURGICAL HISTORY: Liver Transplant 2005 Social History: Smoking: Never Alcohol: None Drugs: None Family History: Non-contributory Allergies No Known Allergies Allergy (Verified 07/09/17 19:00) HOME MEDICATIONS: Home Medications Medication Instructions Recorded Alendronate Na [Fosamax (Weekly)] 70 mg PO Q7D 10/09/16 Amlodipine Besylate [Norvasc -] 5 mg PO DAILY 10/09/16 Cyclosporine 25 mg PO DAILY 10/09/16 Dexlansoprazole [Dexilant] 60 mg PO DAILY 10/09/16 Fluticasone Prop 0.05% Nasal 1 spray NS DAILY 10/09/16 [Flonase -] Lamivudine 300 mg PO DAILY 10/09/16 Lipase/Protease/Amylase [[place] Dr 1 each PO DAILY 10/09/16 36,000 Units Capsule] Olopatadine HCl [Pataday] 2.5 ml OP DAILY 10/09/16 [place]-3/Dha/Epa/Fish Oil [[place] 3 1 each PO DAILY 10/09/16 500 Softgel] Rivastigmine [Exelon] 1 each TD DAILY PRN 10/09/16 Ursodiol [Actigall] 300 mg PO DAILY 10/09/16 Carbidopa/Levodopa *Cr* 25/100 1 combo PO TID 10/10/16 [Sinemet *Cr* 25/100 -] Enoxaparin [Lovenox -] 40 mg SQ DAILY #90 syringe 10/13/16 Insulin Sliding Scale [Novolog 1 vial SQ ACHS units 10/13/16 Vial Sliding Scale -] Ondansetron Injection [Zofran 4 mg IVPUSH Q6H PRN #0 vial 10/13/16 Injection] REVIEW OF SYSTEMS unobtainable PHYSICAL EXAMINATION Vital Signs - 24 hr 07/09/17 07/09/17 07/09/17 19:00 20:53 21:54 Temperature 103.7 F H 100.5 F H Pulse Rate 88 Pulse Rate [ 78 Right Radial] Respiratory 16 18 Rate Blood Pressure 104/57 Blood Pressure 98/78 [Right Arm] O2 Sat by Pulse 98 Oximetry (%) GENERAL: Awake, alert, HEAD: Normal with no signs of trauma. EYES: Pupils equal, round and reactive to light, , sclera icteric, EARS, NOSE, THROAT: oropharynx clear without exudates. dry mucous membranes NECK: Normal range of motion, supple without lymphadenopathy, LUNGS: Breath sounds equal, clear to auscultation bilaterally. No wheezes, HEART: regular, s1s2 normal, no murmur ABDOMEN: Soft, nontender, no guarding, michel type scar talia present, incision hernia present, normative bowel sound UPPER EXTREMITIES: 2+ pulses, warm, well-perfused. No cyanosis. No peripheral edema. LOWER EXTREMITIES: warm, well-perfused. SKIN: Warm, yellow discoloration Laboratory Results - last 24 hr 07/09/17 07/09/17 07/09/17 20:00 20:00 20:00 WBC 11.5 H D RBC 2.79 L Hgb 9.2 L Hct 27.4 L MCV 98.2 H MCH 33.1 MCHC 33.7 RDW 15.2 D Plt Count 141 MPV 8.9 D Neutrophils % 95.9 H Lymphocytes % 2.3 L D Monocytes % 1.5 L D Eosinophils % 0.2 D Basophils % 0.1 PT with INR 14.30 H INR 1.27 H PTT (Actin FS) 27.7 VBG pH 7.39 POC VBG pCO2 30.3 L D POC VBG pO2 38.7 D Mixed VBG HCO3 17.9 L Sodium Potassium Chloride Carbon Dioxide Anion Gap BUN Creatinine Creat Clearance w eGFR Random Glucose Lactic Acid Calcium Total Bilirubin AST ALT Alkaline Phosphatase Creatine Kinase Troponin I B-Natriuretic Peptide Total Protein Albumin Lipase Urine Color Urine Appearance Urine pH Ur Specific [place] Urine Protein Urine Glucose (UA) Urine Ketones Urine Blood Urine Nitrite Urine Bilirubin Urine Urobilinogen Ur Leukocyte Esterase Blood Type Antibody Screen 07/09/17 07/09/17 07/09/17 20:00 20:00 20:00 WBC RBC Hgb Hct MCV MCH MCHC RDW Plt Count MPV Neutrophils % Lymphocytes % Monocytes % Eosinophils % Basophils % PT with INR INR PTT (Actin FS) VBG pH POC VBG pCO2 POC VBG pO2 Mixed VBG HCO3 Sodium 137 Potassium 3.9 Chloride 107 Carbon Dioxide 20 L D Anion Gap 10 BUN 22 H D Creatinine 1.4 H D Creat Clearance w eGFR 48.76 Random Glucose 96 Lactic Acid 1.1 Calcium 6.5 L* D Total Bilirubin 7.2 H D AST 39 H D ALT 11 L D Alkaline Phosphatase 417 H D Creatine Kinase 45 Troponin I < 0.02 B-Natriuretic Peptide Total Protein 6.8 Albumin 2.0 L Lipase Urine Color Urine Appearance Urine pH Ur Specific [place] Urine Protein Urine Glucose (UA) Urine Ketones Urine Blood Urine Nitrite Urine Bilirubin Urine Urobilinogen Ur Leukocyte Esterase Blood Type B POSITIVE Antibody Screen Negative 07/09/17 07/09/17 20:00 23:08 WBC RBC Hgb Hct MCV MCH MCHC RDW Plt Count MPV Neutrophils % Lymphocytes % Monocytes % Eosinophils % Basophils % PT with INR INR PTT (Actin FS) VBG pH POC VBG pCO2 POC VBG pO2 Mixed VBG HCO3 Sodium Potassium Chloride Carbon Dioxide Anion Gap BUN Creatinine Creat Clearance w eGFR Random Glucose Lactic Acid Calcium Total Bilirubin AST ALT Alkaline Phosphatase Creatine Kinase Troponin I B-Natriuretic Peptide 3076.09 H Total Protein Albumin Lipase 306 Urine Color Caitlin Urine Appearance Clear Urine pH 5.0 D Ur Specific [place] 1.020 Urine Protein Negative Urine Glucose (UA) Negative Urine Ketones Trace H Urine Blood Negative Urine Nitrite Negative Urine Bilirubin 4.0 Urine Urobilinogen 4.0 e.u/dl Ur Leukocyte Esterase Negative Blood Type Antibody Screen CT ABD/PELVIS: Mildly enlarged perocardial LN. Multiple epigastric Ventral Hernia. Numerous small low attentuation hepatic lesions and numerous hepatic calcifications. Bilateral perinephric edema and renal cysts. Non-Obstructing left intrarenal calculous. L. Sided Varices. INTRAhepatic and Extrahepatic biliary ductal dilitation due to multiple gallstones in the intra/extra hepatic ducts. ASSESMENT/PLAN: 81 yo M with Pmhx of HTN, IDDM, Liver transplant on Cyclosporine, Anemia, dementia, who presents with fever and decreased PO intake, found to have Severe sepsis due to acute Cholangitis 1.) Severe Sepsis due to acute cholangitis. - Immunocompromised - started on Zosyn and vanco - Central Line - norepinephrine maintain MAP> 65, IVF according to CVP, avoid fluid overlaod, BNP elevated. - blood and urine culture. - Monitor vitals - monitor intake/ output - ICU care - [facility] transfer center was called for transfer to do ERCP by ED, Marielena was spoken to and they stated airplane pilot (Dr. Clark) would take pt. after 8 am, for possible ERCP - Case discussed with DrElizabeth Gutierrez - Trend lactic acid - Get Pt/inr - Repeat LFT in morning - NPO. 2.) Hx. OF Liver Transplant, done at [facility] - C/W Cyclosporine - Chk. Levels 3.) HTN - Hold ALL ant-HTN meds 4.) IDDM - Monitor blood glucose q6h - insulin according to sliding scale. 5) Hypocalcemia Fluid: according to CVP with regular chest auscultation to avoid fluid overload. Electrolyte: Repeat in am nutrition: NPO for now. Dvt Ppx- SCDS Dispo: ICU Visit type - Emergency Visit Emergency Visit: Yes ED Registration Date: 07/10/17 Care time: The patient presented to the Emergency Department on the above date and was hospitalized for further evaluation of their emergent condition. - New Patient This patient is new to me today: Yes Date on this admission: 07/10/17 - Critical Care Critical Care patient: Yes Total Critical Care Time (in minutes): 45 Critical Care Statement: The care of this patient involved high complexity decision making to prevent further life threatening deterioration of the patient 's condition and/or to evaluate & treat vital organ system(s) failure or risk of failure.
--- NOTE | 2017-07-10 01:22 | HP ---
CHIEF COMPLAINT: PCP: HISTORY OF PRESENT ILLNESS: ER course was notable for: (1) (2) (3) Recent Travel: PAST MEDICAL HISTORY: PAST SURGICAL HISTORY: Social History: Smoking: Alcohol: Drugs: Family History: Allergies No Known Allergies Allergy (Verified 07/09/17 19:00) HOME MEDICATIONS: Home Medications Medication Instructions Recorded Alendronate Na [Fosamax (Weekly)] 70 mg PO Q7D 10/09/16 Amlodipine Besylate [Norvasc -] 5 mg PO DAILY 10/09/16 Cyclosporine 25 mg PO DAILY 10/09/16 Dexlansoprazole [Dexilant] 60 mg PO DAILY 10/09/16 Fluticasone Prop 0.05% Nasal 1 spray NS DAILY 10/09/16 [Flonase -] Lamivudine 300 mg PO DAILY 10/09/16 Lipase/Protease/Amylase [Creon Dr 1 each PO DAILY 10/09/16 36,000 Units Capsule] Olopatadine HCl [Pataday] 2.5 ml OP DAILY 10/09/16 [place]-3/Dha/Epa/Fish Oil [[place] 3 1 each PO DAILY 10/09/16 500 Softgel] Rivastigmine [Exelon] 1 each TD DAILY PRN 10/09/16 Ursodiol [Actigall] 300 mg PO DAILY 10/09/16 Carbidopa/Levodopa *Cr* 25/100 1 combo PO TID 10/10/16 [Sinemet *Cr* 25/100 -] Enoxaparin [Lovenox -] 40 mg SQ DAILY #90 syringe 10/13/16 Insulin Sliding Scale [Novolog 1 vial SQ ACHS units 10/13/16 Vial Sliding Scale -] Ondansetron Injection [Zofran 4 mg IVPUSH Q6H PRN #0 vial 10/13/16 Injection] REVIEW OF SYSTEMS CONSTITUTIONAL: Absent: fever, chills, diaphoresis, generalized weakness, malaise, loss of appetite, weight change HEENT: Absent: rhinorrhea, nasal congestion, throat pain, throat swelling, difficulty swallowing, mouth swelling, ear pain, eye pain, visual changes CARDIOVASCULAR: Absent: chest pain, syncope, palpitations, irregular heart rate, lightheadedness , peripheral edema RESPIRATORY: Absent: cough, shortness of breath, dyspnea with exertion, orthopnea, wheezing, stridor, hemoptysis GASTROINTESTINAL: Absent: abdominal pain, abdominal distension, nausea, vomiting, diarrhea, constipation, melena, hematochezia GENITOURINARY: Absent: dysuria, frequency, urgency, hesitancy, hematuria, flank pain, genital pain MUSCULOSKELETAL: Absent: myalgia, arthralgia, joint swelling, back pain, neck pain SKIN: Absent: rash, itching, pallor HEMATOLOGIC/IMMUNOLOGIC: Absent: easy bleeding, easy bruising, lymphadenopathy, frequent infections ENDOCRINE: Absent: unexplained weight gain, unexplained weight loss, heat intolerance, cold intolerance NEUROLOGIC: Absent: headache, focal weakness or paresthesias, dizziness, unsteady gait, seizure, mental status changes, bladder or bowel incontinence PSYCHIATRIC: Absent: anxiety, depression, suicidal or homicidal ideation, hallucinations. PHYSICAL EXAMINATION Vital Signs - 24 hr 07/09/17 07/09/17 07/09/17 19:00 20:53 21:54 Temperature 103.7 F H 100.5 F H Pulse Rate 88 Pulse Rate [ 78 Right Radial] Respiratory 16 18 Rate Blood Pressure 104/57 Blood Pressure 98/78 [Right Arm] O2 Sat by Pulse 98 Oximetry (%) GENERAL: Awake, alert, and fully oriented, in no acute distress. HEAD: Normal with no signs of trauma. EYES: Pupils equal, round and reactive to light, extraocular movements intact, sclera anicteric, conjunctiva clear. No lid lag. EARS, NOSE, THROAT: Ears normal, nares patent, oropharynx clear without exudates. Moist mucous membranes. NECK: Normal range of motion, supple without lymphadenopathy, JVD, or masses. LUNGS: Breath sounds equal, clear to auscultation bilaterally. No wheezes, and no crackles. No accessory muscle use. HEART: Regular rate and rhythm, normal S1 and S2 without murmur, rub or gallop. ABDOMEN: Soft, nontender, not distended, normoactive bowel sounds, no guarding, no rebound, no masses. No hepatomegaly or splenomegaly. MUSCULOSKELETAL: Normal range of motion at all joints. No bony deformities or tenderness. No CVA tenderness. UPPER EXTREMITIES: 2+ pulses, warm, well-perfused. No cyanosis. No clubbing. No peripheral edema. LOWER EXTREMITIES: 2+ pulses, warm, well-perfused. No calf tenderness. No peripheral edema. NEUROLOGICAL: Cranial nerves II-XII intact. Normal speech. Normal gait. PSYCHIATRIC: Cooperative. Good eye contact. Appropriate mood and affect. SKIN: Warm, dry, normal turgor, no rashes or lesions noted, normal capillary refill. Laboratory Results - last 24 hr 07/09/17 07/09/17 07/09/17 20:00 20:00 20:00 WBC 11.5 H D RBC 2.79 L Hgb 9.2 L Hct 27.4 L MCV 98.2 H MCH 33.1 MCHC 33.7 RDW 15.2 D Plt Count 141 MPV 8.9 D Neutrophils % 95.9 H Lymphocytes % 2.3 L D Monocytes % 1.5 L D Eosinophils % 0.2 D Basophils % 0.1 PT with INR 14.30 H INR 1.27 H PTT (Actin FS) 27.7 VBG pH 7.39 POC VBG pCO2 30.3 L D POC VBG pO2 38.7 D Mixed VBG HCO3 17.9 L Sodium Potassium Chloride Carbon Dioxide Anion Gap BUN Creatinine Creat Clearance w eGFR Random Glucose Lactic Acid Calcium Total Bilirubin AST ALT Alkaline Phosphatase Creatine Kinase Troponin I B-Natriuretic Peptide Total Protein Albumin Lipase Urine Color Urine Appearance Urine pH Ur Specific [place] Urine Protein Urine Glucose (UA) Urine Ketones Urine Blood Urine Nitrite Urine Bilirubin Urine Urobilinogen Ur Leukocyte Esterase Blood Type Antibody Screen 07/09/17 07/09/17 07/09/17 20:00 20:00 20:00 WBC RBC Hgb Hct MCV MCH MCHC RDW Plt Count MPV Neutrophils % Lymphocytes % Monocytes % Eosinophils % Basophils % PT with INR INR PTT (Actin FS) VBG pH POC VBG pCO2 POC VBG pO2 Mixed VBG HCO3 Sodium 137 Potassium 3.9 Chloride 107 Carbon Dioxide 20 L D Anion Gap 10 BUN 22 H D Creatinine 1.4 H D Creat Clearance w eGFR 48.76 Random Glucose 96 Lactic Acid 1.1 Calcium 6.5 L* D Total Bilirubin 7.2 H D AST 39 H D ALT 11 L D Alkaline Phosphatase 417 H D Creatine Kinase 45 Troponin I < 0.02 B-Natriuretic Peptide Total Protein 6.8 Albumin 2.0 L Lipase Urine Color Urine Appearance Urine pH Ur Specific [place] Urine Protein Urine Glucose (UA) Urine Ketones Urine Blood Urine Nitrite Urine Bilirubin Urine Urobilinogen Ur Leukocyte Esterase Blood Type B POSITIVE Antibody Screen Negative 07/09/17 07/09/17 20:00 23:08 WBC RBC Hgb Hct MCV MCH MCHC RDW Plt Count MPV Neutrophils % Lymphocytes % Monocytes % Eosinophils % Basophils % PT with INR INR PTT (Actin FS) VBG pH POC VBG pCO2 POC VBG pO2 Mixed VBG HCO3 Sodium Potassium Chloride Carbon Dioxide Anion Gap BUN Creatinine Creat Clearance w eGFR Random Glucose Lactic Acid Calcium Total Bilirubin AST ALT Alkaline Phosphatase Creatine Kinase Troponin I B-Natriuretic Peptide 3076.09 H Total Protein Albumin Lipase 306 Urine Color [place]lin Urine Appearance Clear Urine pH 5.0 D Ur Specific [place] 1.020 Urine Protein Negative Urine Glucose (UA) Negative Urine Ketones Trace H Urine Blood Negative Urine Nitrite Negative Urine Bilirubin 4.0 Urine Urobilinogen 4.0 e.u/dl Ur Leukocyte Esterase Negative Blood Type Antibody Screen ASSESSMENT/PLAN:
--- NOTE | 2017-07-10 01:47 | HP ---
CHIEF COMPLAINT: fever, lethargy, decreased PO intake x 1 week PCP: unknown. Pt of transplant center at [facility] HISTORY OF PRESENT ILLNESS: Pt is Turkmen-speaking. Gas Manager phone is not working; history taken from records. Pt is an 81 y/o M with H liver CA s/p transplant (1995) on cyclosporine, who presents to ED with complaint of fever, lethargy, and decreased PO intake for 1 week. ER course was notable for: (1) WBC 11.5, AlkP 417, Tbili 7.2, BNP 3076, INR 1.27, Labor Conciliator 1.4 (baseline 1.0) (2) Abd CT, Abd U/S, CXR read by johny. Significant for acute cholangitis (3) Pt received 1L NS in ED. Recent Travel: n/a PAST MEDICAL HISTORY: Liver CA s/p transplant in 1995, HTN, IDDM, Dementia, GERD, Anemia PAST SURGICAL HISTORY: L total hip Social History: Smoking: Alcohol: Drugs: Family History: Allergies No Known Allergies Allergy (Verified 07/09/17 19:00) HOME MEDICATIONS: Home Medications Medication Instructions Recorded Alendronate Na [Fosamax (Weekly)] 70 mg PO Q7D 10/09/16 Amlodipine Besylate [Norvasc -] 5 mg PO DAILY 10/09/16 Cyclosporine 25 mg PO DAILY 10/09/16 Dexlansoprazole [Dexilant] 60 mg PO DAILY 10/09/16 Fluticasone Prop 0.05% Nasal 1 spray NS DAILY 10/09/16 [Flonase -] Lamivudine 300 mg PO DAILY 10/09/16 Lipase/Protease/Amylase [Creon Dr 1 each PO DAILY 10/09/16 36,000 Units Capsule] Olopatadine HCl [Pataday] 2.5 ml OP DAILY 10/09/16 [place]-3/Dha/Epa/Fish Oil [[place] 3 1 each PO DAILY 10/09/16 500 Softgel] Rivastigmine [Exelon] 1 each TD DAILY PRN 10/09/16 Ursodiol [Actigall] 300 mg PO DAILY 10/09/16 Carbidopa/Levodopa *Cr* 25/100 1 combo PO TID 10/10/16 [Sinemet *Cr* 25/100 -] Enoxaparin [Lovenox -] 40 mg SQ DAILY #90 syringe 10/13/16 Insulin Sliding Scale [Novolog 1 vial SQ ACHS units 10/13/16 Vial Sliding Scale -] Ondansetron Injection [Zofran 4 mg IVPUSH Q6H PRN #0 vial 10/13/16 Injection] REVIEW OF SYSTEMS Unable to obtain PHYSICAL EXAMINATION Vital Signs - 24 hr 07/09/17 07/09/17 07/09/17 19:00 20:53 21:54 Temperature 103.7 F H 100.5 F H Pulse Rate 88 Pulse Rate [ 78 Right Radial] Respiratory 16 18 Rate Blood Pressure 104/57 Blood Pressure 98/78 [Right Arm] O2 Sat by Pulse 98 Oximetry (%) LIMITED PE GENERAL: Awake, somewhat lethargic in no acute distress. HEAD: Normal with no signs of trauma. EYES: Pupils equal, round and reactive to light, extraocular movements intact, sclera anicteric, conjunctiva clear. No lid lag. EARS, NOSE, THROAT: oropharynx clear without exudates. Moist mucous membranes. NECK: Normal range of motion, supple without lymphadenopathy, JVD, or masses. LUNGS: Breath sounds equal, clear to auscultation bilaterally. No wheezes, and no crackles. No accessory muscle use. HEART: Regular rate and rhythm, normal S1 and S2 without murmur, rub or gallop. ABDOMEN: Soft, nontender, distended, normoactive bowel sounds, no guarding, no rebound, no masses. T-shaped laparotomy scar with incisional hernia No hepatomegaly or splenomegaly. MUSCULOSKELETAL: Normal range of motion at all joints. No bony deformities or tenderness. No CVA tenderness. UPPER EXTREMITIES: 2+ pulses, warm, well-perfused. No cyanosis. No clubbing. No peripheral edema. LOWER EXTREMITIES: 2+ pulses, warm, well-perfused. No calf tenderness. No peripheral edema. NEUROLOGICAL: Unable to assess PSYCHIATRIC: Cooperative. Good eye contact. Appropriate mood and affect. SKIN: Warm, dry, normal turgor, no rashes or lesions noted, normal capillary refill. Laboratory Results - last 24 hr 07/09/17 07/09/17 07/09/17 20:00 20:00 20:00 WBC 11.5 H D RBC 2.79 L Hgb 9.2 L Hct 27.4 L MCV 98.2 H MCH 33.1 MCHC 33.7 RDW 15.2 D Plt Count 141 MPV 8.9 D Neutrophils % 95.9 H Lymphocytes % 2.3 L D Monocytes % 1.5 L D Eosinophils % 0.2 D Basophils % 0.1 PT with INR 14.30 H INR 1.27 H PTT (Actin FS) 27.7 VBG pH 7.39 POC VBG pCO2 30.3 L D POC VBG pO2 38.7 D Mixed VBG HCO3 17.9 L Sodium Potassium Chloride Carbon Dioxide Anion Gap BUN Creatinine Creat Clearance w eGFR Random Glucose Lactic Acid Calcium Total Bilirubin AST ALT Alkaline Phosphatase Creatine Kinase Troponin I B-Natriuretic Peptide Total Protein Albumin Lipase Urine Color Urine Appearance Urine pH Ur Specific [place] Urine Protein Urine Glucose (UA) Urine Ketones Urine Blood Urine Nitrite Urine Bilirubin Urine Urobilinogen Ur Leukocyte Esterase Blood Type Antibody Screen 07/09/17 07/09/17 07/09/17 20:00 20:00 20:00 WBC RBC Hgb Hct MCV MCH MCHC RDW Plt Count MPV Neutrophils % Lymphocytes % Monocytes % Eosinophils % Basophils % PT with INR INR PTT (Actin FS) VBG pH POC VBG pCO2 POC VBG pO2 Mixed VBG HCO3 Sodium 137 Potassium 3.9 Chloride 107 Carbon Dioxide 20 L D Anion Gap 10 BUN 22 H D Creatinine 1.4 H D Creat Clearance w eGFR 48.76 Random Glucose 96 Lactic Acid 1.1 Calcium 6.5 L* D Total Bilirubin 7.2 H D AST 39 H D ALT 11 L D Alkaline Phosphatase 417 H D Creatine Kinase 45 Troponin I < 0.02 B-Natriuretic Peptide Total Protein 6.8 Albumin 2.0 L Lipase Urine Color Urine Appearance Urine pH Ur Specific [place] Urine Protein Urine Glucose (UA) Urine Ketones Urine Blood Urine Nitrite Urine Bilirubin Urine Urobilinogen Ur Leukocyte Esterase Blood Type B POSITIVE Antibody Screen Negative 07/09/17 07/09/17 20:00 23:08 WBC RBC Hgb Hct MCV MCH MCHC RDW Plt Count MPV Neutrophils % Lymphocytes % Monocytes % Eosinophils % Basophils % PT with INR INR PTT (Actin FS) VBG pH POC VBG pCO2 POC VBG pO2 Mixed VBG HCO3 Sodium Potassium Chloride Carbon Dioxide Anion Gap BUN Creatinine Creat Clearance w eGFR Random Glucose Lactic Acid Calcium Total Bilirubin AST ALT Alkaline Phosphatase Creatine Kinase Troponin I B-Natriuretic Peptide 3076.09 H Total Protein Albumin Lipase 306 Urine Color Caitlin Urine Appearance Clear Urine pH 5.0 D Ur Specific [place] 1.020 Urine Protein Negative Urine Glucose (UA) Negative Urine Ketones Trace H Urine Blood Negative Urine Nitrite Negative Urine Bilirubin 4.0 Urine Urobilinogen 4.0 e.u/dl Ur Leukocyte Esterase Negative Blood Type Antibody Screen ASSESSMENT/PLAN: Pt is an 81 y/o M with PMH liver CA s/p transplant who presents to ED with severe sepsis 2/2 acute cholangitis. Pt admitted to ICU pending transfer to [facility] transplant center. #Severe sepsis 2/2 acute cholangitis -BP 79/51, WBC 11.5, 100.5F -AlkP 417, Tbili 7.2, INR 1.27 -cholangitis confirmed on abd imaging -ED staff spoke with Marielena at [facility] about transfer to that facility. Reportedly, bed may become available in the morning under care of Threat Analyst Dr. Clark. -Spoke to GI (Dr. Snow) at this facility around 1am who felt that pt should be cared for at transplant center. -Cautious with fluid as pt is likely overloaded. Pt received 1L in ED and reportedly had some SOB thereafter -Vanc+Zosyn empiric coverage -Central line placed -Levophed started -BCx pending -UCx pending -follow [facility] #Hx Liver transplant -c/w cyclosporine #HTN -hold meds #IDDM -BGM -ISS #FEN -Hold fluids -lytes wnl -NPO #PPx -SCD #Dispo -ICU admission pending transfer in am to [facility] Justni Yi MD PGY-1 IM Visit type - Emergency Visit Emergency Visit: Yes Care time: The patient presented to the Emergency Department on the above date and was hospitalized for further evaluation of their emergent condition. - New Patient This patient is new to me today: Yes Date on this admission: 07/10/17 - Critical Care Critical Care patient: No
[2017-07-10 03:11] LABS: BILIRUBIN,DIRECT 5.7 mg/dL (0.0-0.2)
[2017-07-10 06:33] LABS: ARTERIAL BLD GAS O2 SATURATION 98.9 % (90-98.9); ARTERIAL BLOOD GAS PCO2 27.7 mmHg (35-45); CARBOXYHEMOGLOBIN 1.3 gm% (0.5-2.0)
[2017-07-10 06:34] LABS: ALLENS TEST POSITIVE; ARTERIAL BLOOD GAS BASE EXCESS -6.7 meq/l (-2-2)
[2017-07-10] MEDS ORDERED: INSULIN SLIDING SCALE (NOVOLOG) 1 VIAL SQ SCH ×2 (07:00)
[2017-07-10] MEDS ORDERED: PIPERACILLIN/TAZOB 3.375 GM 3.375 GM in DEXTROSE 5%-WATER - 100 ML IVPB ONE (08:00)
[2017-07-10 08:12] LABS: BASO % 0.1 % (0-2.0); EOS % 0.1 % (0-4.5); HEMATOCRIT 25.9 % (35.4-49); HEMOGLOBIN 8.5 GM/dL (11.7-16.9); LYMPH % 6.1 % (8-40); MCH 32.4 pg (25.7-33.7); MCHC 32.6 g/dl (32.0-35.9); MEAN CELL VOLUME 99.5 fl (80-96); MEAN PLT VOLUME 9.7 fl (7.5-11.1); MONO % 4.1 % (3.8-10.2); NEUT % 89.6 % (42.8-82.8); PLATELET COUNT 126 K/MM3 (134-434); RBC 2.61 M/mm3 (4.00-5.60); RDW 15.6 % (11.9-15.9); WHITE BLOOD COUNT 16.4 K/mm3 (4.0-10.0)
[2017-07-10 08:14] LABS: INR 1.31 (0.82-1.09); PROTHROMBIN TIME (PATIENT) 14.8 SEC (9.98-11.88)
[2017-07-10 08:17] LABS: ACTIVATED PTT 28.9 SECONDS (26.9-34.4)
[2017-07-10 08:28] LABS: ALBUMIN 1.9 g/dl (3.4-5.0); ANION GAP 11 (8-16); BLOOD UREA NITROGEN 21 mg/dL (7-18); CHLORIDE 108 mmol/L (98-107); CO2 18 mmol/L (21-32); CREATININE 1.4 mg/dL (0.7-1.3); GLUCOSE,RANDOM 157 mg/dL (74-106); POTASSIUM 4.1 mmol/L (3.5-5.1); SGOT/AST 73 U/L (15-37); SGPT/ALT 7 U/L (12-78); SODIUM 137 mmol/L (136-145); TOT PROT 6.5 g/dl (6.4-8.2)
[2017-07-10 08:29] LABS: ALK PHOS 360 U/L (45-117)
[2017-07-10 08:44] LABS: CALCIUM 6.7 mg/dL (8.5-10.1)
[2017-07-10] MEDS ORDERED: PIPERACILLIN/TAZOB 3.375 GM/50 ML PRE-DOCKED IVPB SCH ×2 (10:00)
[2017-07-10] MEDS ORDERED: FLUCONAZOLE 100 MG/D5W 50 ML IVPB SCH (10:00)
[2017-07-10] MEDS ORDERED: CYCLOSPORINE 25 MG PO SCH (10:00)
[2017-07-10] MEDS: CALCIUM 500MG/VIT-D 200 UNITS COMBO TABLET (FP) PO SCH (10:24)
[2017-07-10 11:18] VITALS: BP 105/65; PULSE 67; TEMP 97.6
--- NOTE | 2017-07-10 11:56 | CON.GI ---
Consult Consult Specialty:: GI - History of Present Illness History of Present Illness: 81 yo M with Pmhx of HTN, IDDM, Liver transplant 2006 on Cyclosporine, Anemia, dementia, who presents with fever and decreased PO intake. Noted to have cholestatis, leukocytosis and CT a/p positive for choledocolithiasis and cholelithiasis. - Past Medical History CERTIFIED ALCOHOL DRUG COUNSELOR: Yes: Dementia Cardio/Vascular: Yes: HTN Gastrointestinal: Yes: Cancer (Liver CA) Hepatobiliary: Yes: Other (liver transplant) Infectious Disease: Yes: Other (FUO) Musculoskeletal: Yes: Other (HIP PAIN) - Past Surgical History Past Surgical History: Yes: Joint Replacement (Left hip replacement), Liver Transplant - Alcohol/Substance Use Hx Alcohol Use: No - Smoking History Smoking history: Never smoked Have you smoked in the past 12 months: No Home Medications - Allergies Allergies/Adverse Reactions: Allergies Allergy/AdvReac Type Severity Reaction Status Date / Time No Known Allergies Allergy Verified 07/09/17 19:00 - Home Medications Home Medications: Ambulatory Orders Alendronate Na [Fosamax (Weekly)] 70 mg PO Q7D 10/09/16 Amlodipine Besylate [Norvasc -] 5 mg PO DAILY 10/09/16 Cyclosporine 25 mg PO DAILY 10/09/16 Dexlansoprazole [Dexilant] 60 mg PO DAILY 10/09/16 Fluticasone Prop 0.05% Nasal [Flonase -] 1 spray NS DAILY 10/09/16 Lamivudine 300 mg PO DAILY 10/09/16 Lipase/Protease/Amylase [[place] Dr 36,000 Units Capsule] 1 each PO DAILY Olopatadine HCl [Pataday] 2.5 ml OP DAILY 10/09/16 [place]-3/Dha/Epa/Fish Oil [[place] 3 500 Softgel] 1 each PO DAILY 10/09/16 Rivastigmine [Exelon] 1 each TD DAILY PRN 10/09/16 Ursodiol [Actigall] 300 mg PO DAILY 10/09/16 Carbidopa/Levodopa *Cr* 25/100 [Sinemet *Cr* 25/100 -] 1 combo PO TID 10/10/16 Enoxaparin [Lovenox -] 40 mg SQ DAILY #90 syringe 10/13/16 Insulin Sliding Scale [Novolog Vial Sliding Scale -] 1 vial SQ ACHS units 10/13 Ondansetron Injection [Zofran Injection] 4 mg IVPUSH Q6H PRN #0 vial 10/13/16 Family Disease History - Family Disease History Family History: Unremarkable Review of Systems Findings/Remarks: As per H&P, HPI Physical Exam-GI Vital Signs: Vital Signs Temperature 97.6 F 07/10/17 11:16 Pulse Rate 67 07/10/17 11:16 Respiratory Rate 18 07/10/17 11:16 Blood Pressure 105/65 07/10/17 11:16 O2 Sat by Pulse Oximetry (%) 100 07/10/17 09:59 Constitutional: Yes: Well Nourished, No Distress, Calm Eyes: Yes: Conjunctiva Clear HENT: Yes: Atraumatic Neck: Yes: Supple Cardiovascular: Yes: Regular Rate and Rhythm Respiratory: Yes: Regular Gastrointestinal Inspection: Yes: Distention ...Palpate: Yes: Soft. No: Tenderness, Epigastium, Tenderness, Rebound Neurological: Yes: Alert Labs: CBC, BMP 07/10/17 07:42 07/10/17 07:42 INR, PTT INR 1.31 (0.82-1.09) H 07/10/17 07:42 Laboratory Results - last 24 hr 07/09/17 07/09/17 07/09/17 20:00 20:00 20:00 WBC 11.5 H D RBC 2.79 L Hgb 9.2 L Hct 27.4 L MCV 98.2 H MCH 33.1 MCHC 33.7 RDW 15.2 D Plt Count 141 MPV 8.9 D Neutrophils % 95.9 H Lymphocytes % 2.3 L D Monocytes % 1.5 L D Eosinophils % 0.2 D Basophils % 0.1 PT with INR 14.30 H INR 1.27 H PTT (Actin FS) 27.7 Anticoagulation Therapy Puncture Site ABG pH ABG pCO2 at Pt Temp ABG pO2 at Pt Temp ABG HCO3 ABG O2 Sat (Measured) ABG O2 Content ABG Base Excess Christopher Test VBG pH 7.39 POC VBG pCO2 30.3 L D POC VBG pO2 38.7 D Mixed VBG HCO3 17.9 L Carboxyhemoglobin Methemoglobin O2 Delivery Device Oxygen Flow Rate Vent Mode Vent Rate Mechanical Rate Pressure Support Vent Sodium Potassium Chloride Carbon Dioxide Anion Gap BUN Creatinine Creat Clearance w eGFR POC Glucometer Random Glucose Lactic Acid Calcium Total Bilirubin Direct Bilirubin GGT AST ALT Alkaline Phosphatase Creatine Kinase Troponin I B-Natriuretic Peptide Total Protein Albumin Lipase Urine Color Urine Appearance Urine pH Ur Specific [place] Urine Protein Urine Glucose (UA) Urine Ketones Urine Blood Urine Nitrite Urine Bilirubin Urine Urobilinogen Ur Leukocyte Esterase Blood Type Antibody Screen 07/09/17 07/09/17 07/09/17 20:00 20:00 20:00 WBC RBC Hgb Hct MCV MCH MCHC RDW Plt Count MPV Neutrophils % Lymphocytes % Monocytes % Eosinophils % Basophils % PT with INR INR PTT (Actin FS) Anticoagulation Therapy Puncture Site ABG pH ABG pCO2 at Pt Temp ABG pO2 at Pt Temp ABG HCO3 ABG O2 Sat (Measured) ABG O2 Content ABG Base Excess Christopher Test VBG pH POC VBG pCO2 POC VBG pO2 Mixed VBG HCO3 Carboxyhemoglobin Methemoglobin O2 Delivery Device Oxygen Flow Rate Vent Mode Vent Rate Mechanical Rate Pressure Support Vent Sodium 137 Potassium 3.9 Chloride 107 Carbon Dioxide 20 L D Anion Gap 10 BUN 22 H D Creatinine 1.4 H D Creat Clearance w eGFR 48.76 POC Glucometer Random Glucose 96 Lactic Acid 1.1 Calcium 6.5 L* D Total Bilirubin 7.2 H D Direct Bilirubin GGT AST 39 H D ALT 11 L D Alkaline Phosphatase 417 H D Creatine Kinase 45 Troponin I < 0.02 B-Natriuretic Peptide Total Protein 6.8 Albumin 2.0 L Lipase Urine Color Urine Appearance Urine pH Ur Specific [place] Urine Protein Urine Glucose (UA) Urine Ketones Urine Blood Urine Nitrite Urine Bilirubin Urine Urobilinogen Ur Leukocyte Esterase Blood Type B POSITIVE Antibody Screen Negative 07/09/17 07/09/17 07/10/17 20:00 23:08 02:31 WBC RBC Hgb Hct MCV MCH MCHC RDW Plt Count MPV Neutrophils % Lymphocytes % Monocytes % Eosinophils % Basophils % PT with INR INR PTT (Actin FS) Anticoagulation Therapy Puncture Site ABG pH ABG pCO2 at Pt Temp ABG pO2 at Pt Temp ABG HCO3 ABG O2 Sat (Measured) ABG O2 Content ABG Base Excess Christopher Test VBG pH POC VBG pCO2 POC VBG pO2 Mixed VBG HCO3 Carboxyhemoglobin Methemoglobin O2 Delivery Device Oxygen Flow Rate Vent Mode Vent Rate Mechanical Rate Pressure Support Vent Sodium Potassium Chloride Carbon Dioxide Anion Gap BUN Creatinine Creat Clearance w eGFR POC Glucometer Random Glucose Lactic Acid Calcium Total Bilirubin Direct Bilirubin 5.7 H GGT 112 H AST ALT Alkaline Phosphatase Creatine Kinase Troponin I B-Natriuretic Peptide 3076.09 H Total Protein Albumin Lipase 306 Urine Color Caitlin Urine Appearance Clear Urine pH 5.0 D Ur Specific [place] 1.020 Urine Protein Negative Urine Glucose (UA) Negative Urine Ketones Trace H Urine Blood Negative Urine Nitrite Negative Urine Bilirubin 4.0 Urine Urobilinogen 4.0 e.u/dl Ur Leukocyte Esterase Negative Blood Type Antibody Screen 07/10/17 07/10/17 07/10/17 02:31 02:35 06:12 WBC RBC Hgb Hct MCV MCH MCHC RDW Plt Count MPV Neutrophils % Lymphocytes % Monocytes % Eosinophils % Basophils % PT with INR INR PTT (Actin FS) Anticoagulation Therapy Puncture Site ABG pH ABG pCO2 at Pt Temp ABG pO2 at Pt Temp ABG HCO3 ABG O2 Sat (Measured) ABG O2 Content ABG Base Excess Christopher Test VBG pH POC VBG pCO2 POC VBG pO2 Mixed VBG HCO3 Carboxyhemoglobin 1.3 Methemoglobin 1.3 O2 Delivery Device Oxygen Flow Rate Vent Mode Vent Rate Mechanical Rate Pressure Support Vent Sodium Potassium Chloride Carbon Dioxide Anion Gap BUN Creatinine Creat Clearance w eGFR POC Glucometer [phone] Random Glucose Lactic Acid 1.2 Calcium Total Bilirubin Direct Bilirubin GGT AST ALT Alkaline Phosphatase Creatine Kinase Troponin I B-Natriuretic Peptide Total Protein Albumin Lipase Urine Color Urine Appearance Urine pH Ur Specific [place] Urine Protein Urine Glucose (UA) Urine Ketones Urine Blood Urine Nitrite Urine Bilirubin Urine Urobilinogen Ur Leukocyte Esterase Blood Type Antibody Screen 07/10/17 07/10/17 07/10/17 06:12 06:48 07:00 WBC RBC Hgb Hct MCV MCH MCHC RDW Plt Count MPV Neutrophils % Lymphocytes % Monocytes % Eosinophils % Basophils % PT with INR INR PTT (Actin FS) Anticoagulation Therapy No Result Required. Puncture Site Right radial ABG pH 7.40 ABG pCO2 at Pt Temp 27.7 L ABG pO2 at Pt Temp 143.0 H ABG HCO3 16.8 L ABG O2 Sat (Measured) 98.9 ABG O2 Content 11.6 L ABG Base Excess -6.7 L Christopher Test Positive VBG pH POC VBG pCO2 POC VBG pO2 Mixed VBG HCO3 Carboxyhemoglobin Methemoglobin O2 Delivery Device N/c Oxygen Flow Rate 2lpm Vent Mode No Result Required. Vent Rate No Result Required. Mechanical Rate No Result Required. Pressure Support Vent No Result Required. Sodium Potassium Chloride Carbon Dioxide Anion Gap BUN Creatinine Creat Clearance w eGFR POC Glucometer [phone] Random Glucose Lactic Acid 1.0 Calcium Total Bilirubin Direct Bilirubin GGT AST ALT Alkaline Phosphatase Creatine Kinase Troponin I B-Natriuretic Peptide Total Protein Albumin Lipase Urine Color Urine Appearance Urine pH Ur Specific [place] Urine Protein Urine Glucose (UA) Urine Ketones Urine Blood Urine Nitrite Urine Bilirubin Urine Urobilinogen Ur Leukocyte Esterase Blood Type Antibody Screen 07/10/17 07/10/17 07/10/17 07:42 07:42 07:42 WBC 16.4 H D RBC 2.61 L Hgb 8.5 L Hct 25.9 L MCV 99.5 H MCH 32.4 MCHC 32.6 RDW 15.6 Plt Count 126 L MPV 9.7 Neutrophils % 89.6 H Lymphocytes % 6.1 L D Monocytes % 4.1 D Eosinophils % 0.1 Basophils % 0.1 PT with INR 14.80 H INR 1.31 H PTT (Actin FS) 28.9 Anticoagulation Therapy Puncture Site ABG pH ABG pCO2 at Pt Temp ABG pO2 at Pt Temp ABG HCO3 ABG O2 Sat (Measured) ABG O2 Content ABG Base Excess Christopher Test VBG pH POC VBG pCO2 POC VBG pO2 Mixed VBG HCO3 Carboxyhemoglobin Methemoglobin O2 Delivery Device Oxygen Flow Rate Vent Mode Vent Rate Mechanical Rate Pressure Support Vent Sodium Potassium Chloride Carbon Dioxide Anion Gap BUN Creatinine Creat Clearance w eGFR POC Glucometer Random Glucose Lactic Acid Calcium Total Bilirubin Cancelled Direct Bilirubin GGT AST ALT Alkaline Phosphatase Creatine Kinase Troponin I B-Natriuretic Peptide Total Protein Albumin Lipase Urine Color Urine Appearance Urine pH Ur Specific [place] Urine Protein Urine Glucose (UA) Urine Ketones Urine Blood Urine Nitrite Urine Bilirubin Urine Urobilinogen Ur Leukocyte Esterase Blood Type Antibody Screen 07/10/17 07:42 WBC RBC Hgb Hct MCV MCH MCHC RDW Plt Count MPV Neutrophils % Lymphocytes % Monocytes % Eosinophils % Basophils % PT with INR INR PTT (Actin FS) Anticoagulation Therapy Puncture Site ABG pH ABG pCO2 at Pt Temp ABG pO2 at Pt Temp ABG HCO3 ABG O2 Sat (Measured) ABG O2 Content ABG Base Excess Christopher Test VBG pH POC VBG pCO2 POC VBG pO2 Mixed VBG HCO3 Carboxyhemoglobin Methemoglobin O2 Delivery Device Oxygen Flow Rate Vent Mode Vent Rate Mechanical Rate Pressure Support Vent Sodium 137 Potassium 4.1 Chloride 108 H Carbon Dioxide 18 L Anion Gap 11 BUN 21 H Creatinine 1.4 H Creat Clearance w eGFR 48.76 POC Glucometer Random Glucose 157 H D Lactic Acid Calcium 6.7 L* Total Bilirubin 7.0 H Direct Bilirubin GGT AST 73 H D ALT 7 L D Alkaline Phosphatase 360 H Creatine Kinase Troponin I B-Natriuretic Peptide Total Protein 6.5 Albumin 1.9 L Lipase Urine Color Urine Appearance Urine pH Ur Specific [place] Urine Protein Urine Glucose (UA) Urine Ketones Urine Blood Urine Nitrite Urine Bilirubin Urine Urobilinogen Ur Leukocyte Esterase Blood Type Antibody Screen Imaging - Results Cat Scan: Report Reviewed Problem List - Problems (1) Choledocholithiasis Code(s): K80.50 - CALCULUS OF BILE DUCT W/O CHOLANGITIS OR CHOLECYST W/O OBST (2) Cholangitis due to bile duct calculus with obstruction Code(s): K80.31 - CALCULUS OF BILE DUCT W CHOLANGITIS, UNSP, WITH OBSTRUCTION Assessment/Plan An 81 yom liver transplant recipient in 2005 now with biliary obstruction and likely cholangitis. Levo and Flagyl ERCP LARRY ID consult IVF Antiemetics PRN If cannot do ERCP very soon, will transfer to [facility] (transplant center)
--- NOTE | 2017-07-10 13:02 | EKG ---
Test Reason : Blood Pressure : / mmHG Vent. Rate : 089 BPM Atrial Rate : 089 BPM P-R Int : 160 ms QRS Dur : 124 ms QT Int : 390 ms P-R-T Axes : 037 -29 -08 degrees QTc Int : 474 ms SINUS RHYTHM WITH PREMATURE ATRIAL COMPLEXES RIGHT BUNDLE BRANCH BLOCK ABNORMAL ECG WHEN COMPARED WITH ECG OF 09-OCT-2016 13:15, PREMATURE ATRIAL COMPLEXES ARE NOW PRESENT T WAVE VARIATION Confirmed by MARIBEL BERNSTEIN, THALIA ([id number]) on 07/10/2017 1:02:34 PM Referred By: Confirmed By:THALIA LÓPEZ MD
--- NOTE | 2017-07-10 15:16 | HOSP ---
Subjective - Review of Symptoms Subjective: pt seen and examined with the resident c/o feeling warm and lethargic. denies CP, SOB, abdominal pain, N/V/C/D Last Vital Signs Temp Pulse Resp BP Pulse Ox 97.6 F 67 18 105/65 100 07/10/17 11:16 07/10/17 11:16 07/10/17 11:16 07/10/17 11:16 07/10/17 09:59 General lethargic HEENT +scleral icterus CV S1 S2 RRR no murmur/rub/gallop Lungs CTA B/L anteriorly Abdomen soft +distention. NT no rebound or guarding extremities no pedal edema A/P 81yo M with PMH liver transplant 1995 on immunotherapy, s/p cholecystecetomy, HTN, DM, anemia and dementia presented to ER with fevers and anorexia 1. Septic shock due to acute cholangitis- currently on levo 2.5mcg. on Vanco/ zosyn day 1. will need emergent ERCP and will be transferred to [facility]. Accepted by Dr Yates. Physical Examination Vital Signs: Vital Signs Temperature 97.6 F 07/10/17 11:16 Pulse Rate 67 07/10/17 11:16 Respiratory Rate 18 07/10/17 11:16 Blood Pressure 105/65 07/10/17 11:16 O2 Sat by Pulse Oximetry (%) 100 07/10/17 09:59 Labs: CBC, BMP 07/10/17 07:42 07/10/17 07:42
--- NOTE | 2017-07-10 20:48 | DS ---
Physical Exam: SUBJECTIVE: Patient seen and examined OBJECTIVE: Vital Signs Period Temp Pulse Resp BP Sys/Puentes Pulse Ox Last 24 Hr 97.4 F-100.5 F 65-78 15-19 98-128/60-88 97-100 PHYSICAL EXAM GENERAL: The patient is awake, alert, and fully oriented, in no acute distress. HEAD: Normal with no signs of trauma. EYES: PERRL, extraocular movements intact, sclera anicteric, conjunctiva clear. ENT: Ears normal, nares patent, oropharynx clear without exudates, moist mucous membranes. NECK: Trachea midline, full range of motion, supple. LUNGS: Breath sounds equal, clear to auscultation bilaterally, no wheezes, no crackles, no accessory muscle use. HEART: Regular rate and rhythm, S1, S2 without murmur, rub or gallop. ABDOMEN: Soft, nontender, nondistended, normoactive bowel sounds, no guarding, no rebound, no hepatosplenomegaly, no masses. EXTREMITIES: 2+ pulses, warm, well-perfused, no edema. NEUROLOGICAL: Cranial nerves II through XII grossly intact. Normal speech, gait not observed. PSYCH: Normal mood, normal affect. SKIN: Warm, dry, normal turgor, no rashes or lesions noted. LABS Laboratory Results - last 24 hr 07/09/17 07/09/17 07/09/17 20:00 20:00 23:08 WBC RBC Hgb Hct MCV MCH MCHC RDW Plt Count MPV Neutrophils % Lymphocytes % Monocytes % Eosinophils % Basophils % PT with INR INR PTT (Actin FS) Anticoagulation Therapy Puncture Site ABG pH ABG pCO2 at Pt Temp ABG pO2 at Pt Temp ABG HCO3 ABG O2 Sat (Measured) ABG O2 Content ABG Base Excess Christopher Test Carboxyhemoglobin Methemoglobin O2 Delivery Device Oxygen Flow Rate Vent Mode Vent Rate Mechanical Rate Pressure Support Vent Sodium Potassium Chloride Carbon Dioxide Anion Gap BUN Creatinine Creat Clearance w eGFR POC Glucometer Random Glucose Lactic Acid Calcium Total Bilirubin Direct Bilirubin GGT AST ALT Alkaline Phosphatase B-Natriuretic Peptide 3076.09 H Total Protein Albumin Lipase 306 Urine Color Caitlin Urine Appearance Clear Urine pH 5.0 D Ur Specific [place] 1.020 Urine Protein Negative Urine Glucose (UA) Negative Urine Ketones Trace H Urine Blood Negative Urine Nitrite Negative Urine Bilirubin 4.0 Urine Urobilinogen 4.0 e.u/dl Ur Leukocyte Esterase Negative Blood Type B POSITIVE Antibody Screen Negative 07/10/17 07/10/17 07/10/17 02:31 02:31 02:35 WBC RBC Hgb Hct MCV MCH MCHC RDW Plt Count MPV Neutrophils % Lymphocytes % Monocytes % Eosinophils % Basophils % PT with INR INR PTT (Actin FS) Anticoagulation Therapy Puncture Site ABG pH ABG pCO2 at Pt Temp ABG pO2 at Pt Temp ABG HCO3 ABG O2 Sat (Measured) ABG O2 Content ABG Base Excess Christopher Test Carboxyhemoglobin Methemoglobin O2 Delivery Device Oxygen Flow Rate Vent Mode Vent Rate Mechanical Rate Pressure Support Vent Sodium Potassium Chloride Carbon Dioxide Anion Gap BUN Creatinine Creat Clearance w eGFR POC Glucometer 200.20541 Random Glucose Lactic Acid 1.2 Calcium Total Bilirubin Direct Bilirubin 5.7 H GGT 112 H AST ALT Alkaline Phosphatase B-Natriuretic Peptide Total Protein Albumin Lipase Urine Color Urine Appearance Urine pH Ur Specific [place] Urine Protein Urine Glucose (UA) Urine Ketones Urine Blood Urine Nitrite Urine Bilirubin Urine Urobilinogen Ur Leukocyte Esterase Blood Type Antibody Screen 07/10/17 07/10/17 07/10/17 06:12 06:12 06:48 WBC RBC Hgb Hct MCV MCH MCHC RDW Plt Count MPV Neutrophils % Lymphocytes % Monocytes % Eosinophils % Basophils % PT with INR INR PTT (Actin FS) Anticoagulation Therapy No Result Required. Puncture Site Right radial ABG pH 7.40 ABG pCO2 at Pt Temp 27.7 L ABG pO2 at Pt Temp 143.0 H ABG HCO3 16.8 L ABG O2 Sat (Measured) 98.9 ABG O2 Content 11.6 L ABG Base Excess -6.7 L Christopher Test Positive Carboxyhemoglobin 1.3 Methemoglobin 1.3 O2 Delivery Device N/c Oxygen Flow Rate 2lpm Vent Mode No Result Required. Vent Rate No Result Required. Mechanical Rate No Result Required. Pressure Support Vent No Result Required. Sodium Potassium Chloride Carbon Dioxide Anion Gap BUN Creatinine Creat Clearance w eGFR POC Glucometer 184.23717 Random Glucose Lactic Acid Calcium Total Bilirubin Direct Bilirubin GGT AST ALT Alkaline Phosphatase B-Natriuretic Peptide Total Protein Albumin Lipase Urine Color Urine Appearance Urine pH Ur Specific [place] Urine Protein Urine Glucose (UA) Urine Ketones Urine Blood Urine Nitrite Urine Bilirubin Urine Urobilinogen Ur Leukocyte Esterase Blood Type Antibody Screen 07/10/17 07/10/17 07/10/17 07:00 07:42 07:42 WBC RBC Hgb Hct MCV MCH MCHC RDW Plt Count MPV Neutrophils % Lymphocytes % Monocytes % Eosinophils % Basophils % PT with INR 14.80 H INR 1.31 H PTT (Actin FS) 28.9 Anticoagulation Therapy Puncture Site ABG pH ABG pCO2 at Pt Temp ABG pO2 at Pt Temp ABG HCO3 ABG O2 Sat (Measured) ABG O2 Content ABG Base Excess Christopher Test Carboxyhemoglobin Methemoglobin O2 Delivery Device Oxygen Flow Rate Vent Mode Vent Rate Mechanical Rate Pressure Support Vent Sodium Potassium Chloride Carbon Dioxide Anion Gap BUN Creatinine Creat Clearance w eGFR POC Glucometer Random Glucose Lactic Acid 1.0 Calcium Total Bilirubin Cancelled Direct Bilirubin GGT AST ALT Alkaline Phosphatase B-Natriuretic Peptide Total Protein Albumin Lipase Urine Color Urine Appearance Urine pH Ur Specific [place] Urine Protein Urine Glucose (UA) Urine Ketones Urine Blood Urine Nitrite Urine Bilirubin Urine Urobilinogen Ur Leukocyte Esterase Blood Type Antibody Screen 07/10/17 07/10/17 07:42 07:42 WBC 16.4 H D RBC 2.61 L Hgb 8.5 L Hct 25.9 L MCV 99.5 H MCH 32.4 MCHC 32.6 RDW 15.6 Plt Count 126 L MPV 9.7 Neutrophils % 89.6 H Lymphocytes % 6.1 L D Monocytes % 4.1 D Eosinophils % 0.1 Basophils % 0.1 PT with INR INR PTT (Actin FS) Anticoagulation Therapy Puncture Site ABG pH ABG pCO2 at Pt Temp ABG pO2 at Pt Temp ABG HCO3 ABG O2 Sat (Measured) ABG O2 Content ABG Base Excess Christopher Test Carboxyhemoglobin Methemoglobin O2 Delivery Device Oxygen Flow Rate Vent Mode Vent Rate Mechanical Rate Pressure Support Vent Sodium 137 Potassium 4.1 Chloride 108 H Carbon Dioxide 18 L Anion Gap 11 BUN 21 H Creatinine 1.4 H Creat Clearance w eGFR 48.76 POC Glucometer Random Glucose 157 H D Lactic Acid Calcium 6.7 L* Total Bilirubin 7.0 H Direct Bilirubin GGT AST 73 H D ALT 7 L D Alkaline Phosphatase 360 H B-Natriuretic Peptide Total Protein 6.5 Albumin 1.9 L Lipase Urine Color Urine Appearance Urine pH Ur Specific [place] Urine Protein Urine Glucose (UA) Urine Ketones Urine Blood Urine Nitrite Urine Bilirubin Urine Urobilinogen Ur Leukocyte Esterase Blood Type Antibody Screen HOSPITAL COURSE: Date of Admission:07/10/17 Date of Discharge: 07/10/17 Discharge Summary Reason For Visit: SEPSIS FEVER HYPERBILIRUBINEMIA - Instructions Referrals: Vini Ramirez [Primary Care Provider] - Disposition: TRANSFER ACUTE CARE/OTHER HOSP - Home Medications Comprehensive Discharge Medication List: Ambulatory Orders Alendronate Na [Fosamax (Weekly)] 70 mg PO Q7D 10/09/16 Amlodipine Besylate [Norvasc -] 5 mg PO DAILY 10/09/16 Cyclosporine 25 mg PO DAILY 10/09/16 Dexlansoprazole [Dexilant] 60 mg PO DAILY 10/09/16 Fluticasone Prop 0.05% Nasal [Flonase -] 1 spray NS DAILY 10/09/16 Lamivudine 300 mg PO DAILY 10/09/16 Lipase/Protease/Amylase [[place] Dr 36,000 Units Capsule] 1 each PO DAILY Olopatadine HCl [Pataday] 2.5 ml OP DAILY 10/09/16 [place]-3/Dha/Epa/Fish Oil [[place] 3 500 Softgel] 1 each PO DAILY 10/09/16 Rivastigmine [Exelon] 1 each TD DAILY PRN 10/09/16 Ursodiol [Actigall] 300 mg PO DAILY 10/09/16 Carbidopa/Levodopa *Cr* 25/100 [Sinemet *Cr* 25/100 -] 1 combo PO TID 10/10/16 Enoxaparin [Lovenox -] 40 mg SQ DAILY #90 syringe 10/13/16 Insulin Sliding Scale [Novolog Vial Sliding Scale -] 1 vial SQ ACHS units 10/13 Ondansetron Injection [Zofran Injection] 4 mg IVPUSH Q6H PRN #0 vial 10/13/16
== END 2017-07-10 11:20 | disposition short-term general hospital (02) | DRG 871 ==
LOC: JER 18:43 → JERBED 07-10 00:18 → UNDOADMIN 07-10 01:09
PROVIDERS: ADMIT Internal Medicine; ATTEND Internal Medicine
DX: A41.9 Sepsis, unspecified organism (principal); R65.21 Severe sepsis with septic shock; Z94.4 Liver transplant status; K83.0 Cholangitis; I10 Essential (primary) hypertension; E11.9 Type 2 diabetes mellitus without complications; Z79.4 Long term (current) use of insulin; F03.90 Unspecified dementia, unspecified severity, without behavioral disturbance, psychotic disturbance, mood disturbance, and anxiety; K21.9 Gastro-esophageal reflux disease without esophagitis; D64.9 Anemia, unspecified; E83.51 Hypocalcemia
CPT/HCPCS: 36415; 36600; 71045-TC; 74176-TC; 76705-TC; 80053; 81003; 82248; 82375; 82550; 82803; 82962; 82977; 83050; 83605; 83690; 83880; 84484; 85025; 85610; 85730; 86850; 86900; 86901; 87040; 87086; 87186; 87804; 93005; 93010; 99285-25